=== PATIENT | female | born 2000 | race Caucasian/White ===

== ENCOUNTER 2019-11-19 09:49 | Outpatient (CLI) | payer OTHER, MEDICAID, SELFPAY ==
--- NOTE | 2019-11-19 10:07 | US_ITS ---
WS: [id number] ULTRASOUND TRANSABDOMINAL HISTORY: ANATOMY : 1 PARA: 0 COMPARISON: None available. FINDINGS: Cervical length measured. None; closed. Placenta grade 0, anterior cardiac tones 138 BPM. Cephalic presentation. Anterior placenta. Cervical length not measured. All 4 chambers of the heart well identified. The skull was normal including the cerebellum. The ventricles are normal The extremities were normal. The abdomen showed normal stomach All 3 vessels were recorded insertion are noted. Femoral length 3.07 cm 19 weeks 4 days gestation. The lips and nose appear to be normal. The spine appear to be symmetrical with no anomalous changes. Biparietal diameter measures 4.6 cm, equals 20w0d. Head circumference measures 18.3 cm, equals 20w5d. Abdomen circumference measures 14.7 cm, equals 20w0d. Femur length measures 3.1 cm, equals 19w4d. Estimated gestational age 20w1d An estimated delivery 04/06/2020. Estimated weight 317 g. US/US OB >= 14 weeks fetus [id number] IMPRESSION: 1. Single live intrauterine uterines . Estimated gestational age 20w 1d and estimated delivery 04/06/2020. 2. development appears to be normal with no definite anomaly seen.1
== END 2019-11-19 09:50 | disposition home or self-care (01) ==
LOC: RAD 09:54
PROVIDERS: Family Provider Family Medicine; PCP Family Medicine; Visit Provider Family Medicine
DX: Z34.82 Encounter for supervision of other normal pregnancy, second trimester (principal)
CPT/HCPCS: 76805

== ENCOUNTER 2019-12-14 01:16 | Emergency (ER) | payer MEDICAID, SELFPAY ==
[2019-12-14 01:31] VITALS: BP 131/94; PULSE 95; RESP 18; TEMP 36.4; O2SAT 98; BMI 35.4
--- NOTE | 2019-12-14 01:37 | ED_ITS ---
HPI - General Adult General: Stated complaint: lower back pain/vomiting Time Seen by Provider: 12/14/19 01:20 History of Present Illness: HPI narrative: Patient is 19-year-old female who is 23 weeks who woke up about 2330 last night with vomiting had not been sick throughout the day has had no problems throughout the . Has been vomiting since 2330 denies fever chills. Denies any food causes. As normal. Is complained about some back pain on the side denies flank tenderness denies any hematuria denies contractions 2 para 1 MD complaint: Nausea and vomiting Onset (ago): hour(s) (2 hours ago) Severity: mild Associated symptoms: Reports nausea and vomiting; Deny chest pain, cough, dyspnea, fevers/chills, headache(s), rash or short of breath Review of Systems Const: Denies: fever, chills or body aches Eyes: Denies: change in vision or blurry vision ENMT: Denies: throat pain or nasal congestion Card: Denies: chest pain or shortness of breath on exertion Resp: Denies: shortness of breath, productive cough or non-productive cough GI: Reports: nausea and vomiting; Denies: abdominal pain or diarrhea Musc: Denies: extremity pain Skin/Breast: Denies: rash Neuro: Denies: headache Psych: Denies: anxiety or depression Ayad/Lymph: Denies: easy bruising Physical Exam Const: COMMON NORMALS: no apparent distress, average body habitus and oriented x3 HENMT: COMMON NORMALS: normocephalic HEAD & SCALP: normal to inspection and normocephalic FACE & SINUS: normal facial exam Eye: COMMON NORMALS: conjunctivae normal GENERAL EYE: normal appearance of both eyes CONJUNCTIVA: Yes conjunctivae normal Neck/C-Spine: COMMON NORMALS: no JVD Chest: COMMONS NORMALS: inspection of chest normal Resp: COMMON NORMALS: normal respiratory effort and clear to auscultation bilaterally AUSCULTATION: clear to auscultation bilaterally Cardio: COMMON NORMALS: no JVD, regular rate and regular rhythm RATE: regular rate RHYTHM: regular rhythm GI: COMMON NORMALS: normal to inspection, nondistended, normoactive bowel sounds Extremity: COMMON NORMALS: normal to inspection and full ROM Neuro: COMMON NORMALS: oriented x3 Coding Level of Care Code ED Publications Distribution Clerk for Anthony Her
[2019-12-14 01:48] LABS: Basophils % 0.2 %; Eosinophils # 0.1 10^3/uL (0.0-0.8); Eosinophils % 0.7 %; Hematocrit 32.8 % (37.0-47.0); Hemoglobin 10.9 g/dL (11.5-15.3); Lymphocytes # 2.1 10^3/uL (1.5-6.5); Mean Corpuscular HGB Conc 33.2 g/dL (30.0-36.0); Mean Corpuscular Hemoglobin 28.8 pg (28.0-34.0); Mean Corpuscular Volume 86.5 fL (81-99); Mean Platelet Volume 10.2 fL (7.4-10.4); Monocytes # 0.7 10^3/uL (0.2-0.9); Monocytes % 5.6 %; Neutrophils # 9.1 10^3/uL (1.8-8.0); Neutrophils % 75.3 %; Nucleated Red Blood Cells % 0 %; Platelet Count 316 10^3/cmm (130-400); Red Blood Count 3.79 10^6/uL (4.1-5.3); Red Cell Distribution Width 14.4 % (12.1-15.1); White Blood Count 12.1 10^3/uL (4.5-13.0)
[2019-12-14] MEDS: sodium chloride 0.9% 1,000 ML 999 ML IV (02:02)
[2019-12-14] MEDS: ondansetron 2 mg/ML SDV 2 mL 4 MG IVP (02:02)
[2019-12-14 02:13] LABS: Alanine Aminotransferase 18 U/L (0-33); Albumin Level 3.2 g/dL (3.5-5.2); Alkaline Phosphatase 153 IU/L (35-105); Anion Gap 14.4 (5-19); Aspartate Amino Transferase 31 U/L (0-32); Blood Urea Nitrogen 5 mg/dL (6-20); Calcium 9.1 mg/dL (8.5-10.5); Carbon Dioxide 26 mmol/L (22-29); Chloride 102 mmol/L (98-107); Globulin 4.4 g/dL (1.3-4.6); Glomerular Filtration Rate 203.5 mL/min (90-130); Glucose 130 mg/dL (65-115); Lipase 43 U/L (13-60); Osmolality Calculated 285 mOsm/kg (285-295); Potassium 3.4 mmol/L (3.5-5.1); Sodium 139 mmol/L (136-145); Total Bilirubin 0.3 mg/dL (0.15-1.2); Total Protein 7.6 g/dL (6.6-8.7)
[2019-12-14 02:15] LABS: Add Urine Microscopic? NO
[2019-12-14 02:21] LABS: Bilirubin Urine 1+ (NEGATIVE); Blood Urine Neg (Negative); Glucose Urine UA Norm (Normal); Ketones Urine Negative (Negative); Leukocyte Esterase Urine Negative (Negative); Nitrate Urine Negative (Negative); Protein Urine Neg (Negative); Specific Gravity, Urine 1.025 (1.005-1.030); Urine Appearance Clear (CLEAR); Urine Color Yellow (Yellow); Urobilinogen Urine 4 mg/dL (Negative); pH Urine 5 (5-7)
[2019-12-14 03:23] VITALS: BP 139/73; PULSE 84; RESP 18; O2SAT 95
== END 2019-12-14 03:25 | disposition home or self-care (01) ==
PROVIDERS: Emergency Provider Nurse Practitioner Family; Family Provider Family Medicine; PCP Family Medicine
DX: O26.892 Other specified pregnancy related conditions, second trimester (principal); M54.5 Low back pain; O21.2 Late vomiting of pregnancy; Z3A.23 23 weeks gestation of pregnancy
CPT/HCPCS: 12345; 36415; 80053; 81003; 83690; 85025; 96360; 96361; 96374; 96375; 99283; A9270; J2405; J7030

== ENCOUNTER 2020-03-20 15:40 | Outpatient (CLI) | payer MEDICAID, SELFPAY ==
[2020-03-20] VITALS (18 sets, daily range): BP systolic 0–130; BP diastolic 0–79; PULSE 91–109; RESP 18; TEMP 36.9; BMI 37.2
[2020-03-20] MEDS: acetaminophen 500 mg Tablet 1000 MG PO (17:04)
[2020-03-20] MEDS: lactated ringers 1,000 ML 999 ML IV (17:06)
[2020-03-20 17:45] LABS: Basophils % 0.3 %; Eosinophils # 0.1 10^3/uL (0.0-0.8); Eosinophils % 0.9 %; Hematocrit 30.2 % (37.0-47.0); Hemoglobin 9.3 g/dL (11.5-15.3); Lymphocytes # 1.7 10^3/uL (1.5-6.5); Lymphocytes % 15.4 %; Mean Corpuscular HGB Conc 30.8 g/dL (30.0-36.0); Mean Corpuscular Hemoglobin 25.1 pg (28.0-34.0); Mean Corpuscular Volume 81.6 fL (81-99); Mean Platelet Volume 10.5 fL (7.4-10.4); Monocytes % 9.4 %; Neutrophils # 7.8 10^3/uL (1.8-8.0); Neutrophils % 70.2 %; Nucleated Red Blood Cells % 0 %; Platelet Count 255 10^3/cmm (130-400); Red Cell Distribution Width 16.2 % (12.1-15.1); White Blood Count 11.1 10^3/uL (4.5-13.0)
[2020-03-20 17:54] LABS: Bilirubin Urine Neg (NEGATIVE); Blood Urine Neg (Negative); Glucose Urine UA Norm (Normal); Ketones Urine Negative (Negative); Nitrate Urine Negative (Negative); Protein Urine Neg (Negative); Urine Appearance Clear (CLEAR); Urine Color Yellow (Yellow); pH Urine 7 (5-7)
[2020-03-20 17:55] LABS: Leukocyte Esterase Urine Negative (Negative); Urobilinogen Urine 1 mg/dL (Negative)
[2020-03-20 17:56] LABS: Add Urine Culture? No; Bacteria Urine TRACE; Mucus Urine 1+; WBC Urine 0-4 /hpf (0-5)
[2020-03-20 18:03] LABS: Alanine Aminotransferase 11 U/L (0-33); Albumin Level 3.8 g/dL (3.5-5.2); Alkaline Phosphatase 229 IU/L (35-105); Anion Gap 18.5 (5-19); Aspartate Amino Transferase 18 U/L (0-32); Blood Urea Nitrogen 5 mg/dL (6-20); Calcium 9.5 mg/dL (8.5-10.5); Carbon Dioxide 22 mmol/L (22-29); Chloride 100 mmol/L (98-107); Globulin 3.4 g/dL (1.3-4.6); Glomerular Filtration Rate 203.5 mL/min (90-130); Glucose 83 mg/dL (65-115); Osmolality Calculated 279 mOsm/kg (285-295); Potassium 3.5 mmol/L (3.5-5.1); Sodium 137 mmol/L (136-145); Total Bilirubin 0.3 mg/dL (0.15-1.2); Total Protein 7.2 g/dL (6.6-8.7); Uric Acid 3.4 mg/dL (2.4-5.7)
[2020-03-20 18:04] LABS: Urine Creatinine 75 mg/dL (28-217)
[2020-03-20 18:07] LABS: UPRO/UCREAT Ratio 0.28 mg/mg CR; Urine Protein Random 21 mg/dL
== END 2020-03-20 18:49 | disposition home or self-care (01) ==
LOC: OPOB 15:51 → OBGYN 18:29
PROVIDERS: PCP Family Medicine; Visit Provider Family Medicine
DX: O26.899 Other specified pregnancy related conditions, unspecified trimester (principal); Z3A.00 Weeks of gestation of pregnancy not specified; R51 Headache
CPT/HCPCS: 36415; 59025; 80053; 81001; 82570; 84156; 84550; 85025; 99211

== ENCOUNTER 2020-03-21 18:11 | Outpatient (CLI) | payer MEDICAID, SELFPAY ==
[2020-03-21 19:13] LABS: Total Volume, Urine 2600 mL
[2020-03-21 20:32] LABS: Total Protein 24 Hour Urine 304.2 mg/24HR (0-150); Urine Total Protein 24 Hour 11.7 mg/dL (0-150)
== END 2020-03-21 18:12 | disposition home or self-care (01) ==
PROVIDERS: PCP Family Medicine; Visit Provider Family Medicine
DX: I10 Essential (primary) hypertension (principal)
CPT/HCPCS: 84156

== ENCOUNTER 2020-03-24 22:40 | Outpatient (CLI) | payer MEDICAID, SELFPAY ==
[2020-03-24 22:59] VITALS: BP 128/64; PULSE 96
[2020-03-24 23:15] VITALS: BP 125/72; PULSE 98; RESP 18; TEMP 37
[2020-03-24 23:46] VITALS: BMI 37.7
== END 2020-03-24 23:43 | disposition home or self-care (01) ==
LOC: OPOB 22:51 → OBGYN 22:51
PROVIDERS: PCP Family Medicine; Visit Provider Family Medicine
DX: O36.8190 Decreased fetal movements, unspecified trimester, not applicable or unspecified (principal); Z3A.00 Weeks of gestation of pregnancy not specified; O13.9 Gestational [pregnancy-induced] hypertension without significant proteinuria, unspecified trimester
CPT/HCPCS: 59025; 99211

== ENCOUNTER 2020-03-27 10:24 | Outpatient (CLI) | payer MEDICAID, SELFPAY ==
[2020-03-27 10:37] VITALS: BP 124/65; PULSE 118; BMI 37.3
[2020-03-27 10:42] VITALS: RESP 16; TEMP 36.7
--- NOTE | 2020-03-27 10:42 | US_ITS ---
WS: [id number] ULTRASOUND OB LIMITED TECHNIQUE: Limited ultrasound examination of the fetus. CLINICAL INFORMATION: Preeclampsia COMPARISON: None. FINDINGS: Single interuterine gestation. presentation is vertex Placental location is anterior. Placenta grade: 2 heart rate 133 BPM. Normal TITI 17.1 cm Biophysical profile 8 out of 8. breathin movement: 2 tone: 2 Amniotic fluid: 2 IMPRESSION 1. Normal biophysical profile 8 out of 8 2. TITI 17.1 cm
[2020-03-27 11:13] VITALS: BP 130/72; PULSE 98
== END 2020-03-27 12:05 | disposition home or self-care (01) ==
LOC: OPOB 10:25 → OBGYN 03-28 08:13
PROVIDERS: PCP Family Medicine; Visit Provider Family Medicine
DX: O26.899 Other specified pregnancy related conditions, unspecified trimester (principal); Z3A.00 Weeks of gestation of pregnancy not specified
CPT/HCPCS: 59025; 76815; 76819

== ENCOUNTER 2020-03-28 22:40 | Inpatient (IN) | payer MEDICAID, SELFPAY ==
[2020-03-28] VITALS (12 sets, daily range): BP systolic 0–161; BP diastolic 0–80; PULSE 88–116; RESP 16; TEMP 37.1; BMI 37.2
[2020-03-28 22:43] LABS: Basophils % 0.2 %; Eosinophils # 0.1 10^3/uL (0.0-0.8); Eosinophils % 1.2 %; Hematocrit 29.4 % (37.0-47.0); Hemoglobin 9.3 g/dL (11.5-15.3); Lymphocytes % 21.9 %; Mean Corpuscular HGB Conc 31.6 g/dL (30.0-36.0); Mean Corpuscular Hemoglobin 25.7 pg (28.0-34.0); Mean Corpuscular Volume 81.2 fL (81-99); Mean Platelet Volume 10.5 fL (7.4-10.4); Monocytes % 11.6 %; Neutrophils # 5.6 10^3/uL (1.8-8.0); Neutrophils % 62.8 %; Nucleated Red Blood Cells % 0 %; Platelet Count 238 10^3/cmm (130-400); Red Blood Count 3.62 10^6/uL (4.1-5.3); Red Cell Distribution Width 18.3 % (12.1-15.1); White Blood Count 8.9 10^3/uL (4.5-13.0)
[2020-03-28 22:59] LABS: Alanine Aminotransferase 14 U/L (0-33); Albumin Level 3.7 g/dL (3.5-5.2); Alkaline Phosphatase 224 IU/L (35-105); Anion Gap 17.6 (5-19); Aspartate Amino Transferase 21 U/L (0-32); Blood Urea Nitrogen 5 mg/dL (6-20); Calcium 9.9 mg/dL (8.5-10.5); Carbon Dioxide 23 mmol/L (22-29); Chloride 101 mmol/L (98-107); Globulin 3.6 g/dL (1.3-4.6); Glomerular Filtration Rate 203.5 mL/min (90-130); Glucose 93 mg/dL (65-115); Osmolality Calculated 281 mOsm/kg (285-295); Potassium 3.6 mmol/L (3.5-5.1); Sodium 138 mmol/L (136-145); Total Bilirubin 0.2 mg/dL (0.15-1.2); Total Protein 7.3 g/dL (6.6-8.7); Uric Acid 3.4 mg/dL (2.4-5.7)
[2020-03-28] MEDS: dextrose 5%-lactated ringers 1,000 ML 125 ML IV (23:44)
[2020-03-28] MEDS: oxytocin 30 UNIT/500 ML BAG IV (23:44)
[2020-03-29] VITALS (95 sets, daily range): BP systolic 0–151; BP diastolic 0–93; PULSE 72–120; RESP 14–18; TEMP 36.6–37; O2SAT 88–99
[2020-03-29] MEDS: alum-mag-hydroxide-sime 30 mL UDC PO (01:38)
[2020-03-29] MEDS: lactated ringers 1,000 ML 999 ML IV (05:32)
[2020-03-29] MEDS: ondansetron 2 mg/ML SDV 2 mL 4 MG IVP (05:46)
--- NOTE | 2020-03-29 06:25 | P.ANESUD_ITS ---
Pre-Anesthetic Update Pre-Anesthetic Assessment: Date of Surgery/Procedure: 03/29/20 Preop Tracey gnosis: Labor pains Proposed Procedure: epidural Any changes to Pre- Anesthetic Assessment?: No Changes from Pre-Anesthetic Assessment: none Labs Last 48hrs: Laboratory Results - last 48 hr 03/28/20 03/28/20 22:30 22:30 WBC 8.9 RBC 3.62 L Hgb 9.3 L Hct 29.4 L MCV 81.2 MCH 25.7 L MCHC 31.6 RDW 18.3 H Plt Count 238 MPV 10.5 H Neut % (Auto) 62.8 Lymph % (Auto) 21.9 [place] % (Auto) 11.6 Eos % (Auto) 1.2 Baso % (Auto) 0.2 Neut # (Auto) 5.6 Lymph # (Auto) 2.0 [place] # (Auto) 1.0 H Eos # (Auto) 0.1 Baso # (Auto) 0.0 Nucleated RBC % (a uto) 0 Nucleated RBCs # 0.0 Sodium 138 Potassium 3.6 Chloride 101 Carbon Dioxide 23 Anion Gap 17.6 BUN 5 L Creatinine 0.4 L GFR Calculation 203.5 H Glucose 93 Calculated Osmolal ity 281 L Uric Acid 3.4 Calcium 9.9 Total Bilirubin 0.2 AST 21 ALT 14 Alkaline Phosphata se 224 H Total Protein 7.3 Albumin 3.7 Globulin 3.6 Vitals: Temperature 98.0 F 03/29/20 04:09 Temperature Source Oral 03/29/20 04:09 Pulse Rate 97 03/29/20 06:17 Pulse Rhythm 03/28/20 23:00 Pulse Strength 3+ Normal 03/28/20 23:00 Respiratory Rate 16 03/29/20 04:09 Respiratory Effort Non-Labored 03/28/20 23:00 Respiratory Depth Normal 03/28/20 23:00 Respiratory Patter n 03/28/20 23:00 Blood Pressure 129/77 03/29/20 06:17 Blood Pressure Amber n 105 03/29/20 06:17 Oxygen Delivery Me thod 03/29/20 04:09 Exam: Pre-Anes Outpt Exam: alert, oriented x 3, clear to auscultation bilaterally and regular rate & rhythm Cardiac Studies: No Data to Display
--- NOTE | 2020-03-29 06:54 | ANES.PROC ---
Anesthesia Procedures Procedure/Date: 03/29/20 epidural Procedure Narrative: epidural complete, bolus given, epidural pump initiated with DIRECTOR OF STRATEGIC SALES education given, vitals taken during procedure using OBIX system and satisfactory throughout, patient admits to decrease pain, report of procedure to OB RN Epidural: Time Out Performed: Yes Consents Signed: Procedure Consent Consent: requested by attending/covering physician, from patient, risks and benefits reviewed and patient agrees to proceed Lumbar Level: L3-L4 Epidural position: sitting Epidural procedure: sterile prep of area, 1% lidocaine to numb the area (3 mL), 18 g needle, negative for paresthesia passed, neg for paresthesia, test dose given, 1.5% xylocaine 1:200k epi (5 mL), 0.2% Ropivacaine bolus ml (5 mL), placed PCEA, no systemic response, sterile dressing applied, L.U.D. no apparent complications and 0.2% Ropiavacaine @ mls/hr (13 mL/hr)
[2020-03-29] MEDS: magnesium sulfate premix 4 GM/100 ML PREMIX IV (07:01)
[2020-03-29] MEDS: dextrose 5%-lactated ringers 1,000 ML 125 ML IV (07:06)
--- NOTE | 2020-03-29 08:13 | P.HP_ITS ---
Providers/Chief Complaint Admitting Physician: Pedro Luis Arzola MD Primary Care Provider: Greg Ortiz DO Chief Complaint: hypertension History of Present Illness Sonali Castle is a 19 year old G2, P1 at 38.1 weeks gestation by 6-week ultrasound inconsistent with LMP. Her is complicated by preeclampsia now with severe features, family history of PE after delivery, brother with autism, history of chlamydia, anemia. The patient was seen in my clinic on 03/28/2020 and had been feeling well overall, however her blood pressure was in the low 140s systolic. We discussed the need for induction of labor since her 24-hour total urine protein was above 300. The patient was scheduled for induction of labor on 03/30/2020 and given instruction to return to OB triage sooner if she is started developing any severe symptoms. On the evening of 03/28/2020, the patient began to have a headache that would not go away and was seeing spots continuously. For this reason she was kept for induction of labor. The patient denies any chest pains, shortness of breath, nausea, vomiting, dysuria, leakage of fluid, vaginal bleeding. Medications/Allergies Home Medications Medication Instructions Recorded Confirmed Last Taken Type ferrous sulfate [Iron (ferrous 325 mg PO DAILY 03/20/20 03/20/20 03/27/20 History sulfate)] Allergies Allergy/AdvReac Type Severity Reaction Status Date / Time No Known Allergies Allergy Verified 03/20/20 17:59 PFSH Acute PFSH: Family History Mother Diabetes Female Reproductive History: Date of last menstrual period: 06/10/19 : 2 Vitals/I&O/Wt Last Vital Signs Temp 98.0 F 03/29/20 04:09 Pulse 97 03/29/20 08:05 Resp 16 03/29/20 04:09 BP 114/60 03/29/20 08:05 Pulse Ox 98 03/29/20 07:03 03/28/20 03/29/20 03/29/20 22:59 06:59 14:59 Intake Total 1742.450 / 1742.450 75 / 75 Balance 1742.450 / 1742.450 75 / 75 Weight last 48 hrs Weight 210 lb Physical Exam Narrative: EXAM NARRATIVE: General: Alert and oriented x3 Eyes: Pupils equal round and reactive to light and accommodation Mouth: Mucous membranes moist, pharynx non-erythematous Cardiac: Regular rate and rhythm without murmurs Lungs: Clear to auscultation bilaterally without wheezes, crackles or rhonchi Abdomen: Soft, non-tender, fundus consistent with gestational age Extremities: Trace edema in the bilateral lower extremities Urinary Catheter Management^: Forte: Cath Placed During This Visit: yes Reason for Continuing Indwelling Catheter: Accurate Measurement of Urinary Output in Critically Ill Patients Urinary Catheter Date of Insertion: 03/29/20 Urinary Catheter Time of Insertion: : Data : 03/28/20 22:30 03/28/20 22:30 A&P Additional A&P Information Sonali Castle is a 19 year old at 38.1 weeks gestation by 6-week ultrasound inconsistent with LMP. Her is complicated by preeclampsia now with severe features, family history of PE after delivery, brother with autism, history of chlamydia, anemia. heart tones are currently in the mid 130s with moderate variability and good accelerations. Contractions are every 2 to 3 minutes. The patient is on 20 units of IV Pitocin. The patient has an epidural and is relatively comfortable other than feeling pressure. The patient has been started on IV magnesium secondary to preeclampsia with severe features. She is currently on 2 g/h. The patient is GBS negative. We will watch for any signs of complications. Expectant vaginal delivery. All questions were answered. Attestations Medical Necessity Statement*: The patient will be here for greater than 2 midnights due to routine intrapartum and management of labor and delivery. Coding Level of Care Code Acute Commercial Baking Teacher for Anthony Her
--- NOTE | 2020-03-29 09:21 | ANES.PROC ---
Anesthesia Procedures Procedure/Date: 03/29/20 Other Information: Pt with pain since water broken. described as increased pressure. Lido 2% 5cc and Fent 100 mcg given with expressed relief
--- NOTE | 2020-03-29 10:06 | P.PCNOB_ITS ---
Delivery Note: Date of delivery: March 29, 2020 Pre-delivery diagnoses: 1. Intrauterine at 38.1 weeks gestation 2. Anemia 3. Preeclampsia with severe features Post-delivery diagnoses: 1. Intrauterine status post spontaneous vaginal delivery at 38.1 weeks gestation 2. Anemia 3. Preeclampsia with severe features 4. Delivery of healthy male weighing 7 pounds 11 ounces with Apgars of 9 and 9 Procedure: Spontaneous vaginal delivery Op report anesthesia: Epidural Estimated blood loss (mL): 100 Findings: 1. Delivery of healthy infant male weighing 7 pounds 11 ounces with Apgars of 9 and 9 2. Intact placenta with central umbilical cord insertion site Pre-Delivery Course: The patient presented to labor and delivery triage secondary to elevating blood pressures and seeing spots. The patient was having intermittent elevated blood pressures and had a total urine protein consistent with preeclampsia, so she was kept for induction of labor. The patient was started on IV Pitocin and contracted well through the night. The patient received a laboring epidural. AROM was performed at 8:05 AM on 03/29/2020. The patient made good change and was complete by 9:25 AM on 03/29/2020. Delivery: The patient began pushing at 9:38 AM on 03/29/2020. The patient pushed well and the infant descended and delivered in the OA position at 9:45 AM on 03/29/2020. A nuchal cord was present and reduced prior to delivery of the . The left shoulder was the anterior shoulder and delivered with ease. Rest of the infant delivered without complication. The infant's mouth and nose were bulb suctioned by myself. The was crying immediately after delivery. The was placed on the mother's chest where the nurses were waiting to care for him. The cord was clamped by myself after approximately 1 minute and cut by the infant's father. Cord blood was then obtained. Traction was placed on the umbilical cord and the placenta delivered without complication at 9:49 AM on 03/29/2020. The placenta was noted to be intact with a central umbilical cord insertion site. The uterus was massaged and IV Pitocin was bolused. The patient had very little bleeding. The cervix was inspected and no lacerations were noted. The vaginal wall was inspected and a few mild abrasions were noted, without any lacerations needing suturing. Currently both the mother and are doing well. Estimated blood loss was 100 mL. Coding Level of Care Code Acute Drum Operator for Anthony Her
--- NOTE | 2020-03-29 12:43 | PC.NURSE ---
1215 PT MOVED UP TO 206, ORIENTATED TO ROOM, CALL LIGHT SYSTEM, REFUSING SCDS AT THIS TIME. WENT OVER PP PACK AND BED RAILS PADDED.
[2020-03-29 14:56] LABS: Magnesium Level (OB Only) 4.5 mg/dL (5.0-7.5)
[2020-03-29] MEDS: magnesium sulfate premix 20 GM/500 ML BAG IV (16:11)
[2020-03-29] MEDS: HYDROcodone-acetaminophen 5-325 mg Tablet PO (16:12)
[2020-03-29] MEDS: dextrose 5%-lactated ringers 1,000 ML 70 ML IV (21:31)
[2020-03-29 22:45] LABS: Magnesium Level (OB Only) 5.3 mg/dL (5.0-7.5)
[2020-03-29 23:28] LABS: Hematocrit 27.8 % (37.0-47.0); Hemoglobin 8.7 g/dL (11.5-15.3); Mean Corpuscular HGB Conc 31.3 g/dL (30.0-36.0); Mean Corpuscular Hemoglobin 26.1 pg (28.0-34.0); Mean Corpuscular Volume 83.5 fL (81-99); Mean Platelet Volume 11.1 fL (7.4-10.4); Platelet Count 241 10^3/cmm (130-400); Red Blood Count 3.33 10^6/uL (4.1-5.3); Red Cell Distribution Width 18.5 % (12.1-15.1); White Blood Count 11.2 10^3/uL (4.5-13.0)
[2020-03-30] VITALS (12 sets, daily range): BP systolic 112–140; BP diastolic 77–91; PULSE 76–89; RESP 16–18; TEMP 36.4–36.8; O2SAT 95–97
[2020-03-30] MEDS: magnesium sulfate premix 20 GM/500 ML BAG IV (03:00)
[2020-03-30 04:08] LABS: Magnesium Level (OB Only) 5.4 mg/dL (5.0-7.5)
[2020-03-30] MEDS: HYDROcodone-acetaminophen 5-325 mg Tablet PO (06:44)
--- NOTE | 2020-03-30 08:37 | PM.PN ---
Subjective Subjective: Interval history: The patient is feeling well overall today. She does have some side effects to the IV magnesium, however feels well otherwise. The patient's bleeding is decreasing well. She has been able to ambulate. The patient's urine output has been very good. Her blood pressures have been under good control. Vitals/I&O/Wt Last Vital Signs Temp 97.9 F 03/29/20 22:17 Pulse 81 03/30/20 04:40 Resp 16 03/29/20 22:17 BP 122/81 03/30/20 04:40 Pulse Ox 96 03/29/20 20:33 03/29/20 03/30/20 03/30/20 22:59 06:59 14:59 Intake Total 1001.167 / 1076.167 500 / 1576.167 Output Total 1505 / 2955 1565 / 4520 Balance -503.833 / -1878.833 -1065 / -2943.833 Weight last 48 hrs Weight 210 lb Physical Exam Narrative: EXAM NARRATIVE: General: Alert and oriented x3 Cardiac: Regular rate and rhythm without murmurs Lungs: Clear to auscultation bilaterally without wheezes, crackles or rhonchi Abdomen: Soft, fundus is firm and above the umbilicus by 1 cm. Extremities: Trace edema in the bilateral lower extremities Urinary Catheter Management^: Forte: Cath Placed During This Visit: yes Reason for Continuing Indwelling Catheter: Accurate Measurement of Urinary Output in Critically Ill Patients Urinary Catheter Date of Insertion: 03/29/20 Urinary Catheter Time of Insertion: : Data : 03/29/20 22:54 03/28/20 22:30 A&P Additional A&P Information Sonali Castle is a 19 year old G2 now P2 status post spontaneous vaginal delivery at 38.1 weeks gestation by 6-week ultrasound inconsistent with LMP. Her was complicated by preeclampsia now with severe features, family history of PE after delivery, brother with autism, history of chlamydia, anemia. The patient is doing well . She is currently improving well and we will discontinue IV magnesium at 24 hours after delivery. Plan for discharge home tomorrow if everything continues to go well. Routine precautions discussed. Attestations Medical Necessity Statement*: The patient will be here for greater than 2 midnights due to routine intrapartum and management of labor and delivery with preeclampsia. Coding Level of Care Code Acute Stone Polisher Hand for Arielag Taina
[2020-03-30 09:24] LABS: Magnesium Level (OB Only) 5.3 mg/dL (5.0-7.5)
[2020-03-30] MEDS: prenatal vitamin Capsule 1 CAP PO (09:33)
[2020-03-30] MEDS: docusate sodium 100 mg Capsule PO ×2 (09:33→17:54)
[2020-03-30] MEDS: ferrous sulfate EC 325 mg Tablet PO ×2 (12:37→17:54)
[2020-03-30] MEDS: benzocaine-menthol 78 gm Canister 1 SPRAY TOPICAL (20:15)
[2020-03-31 06:00] VITALS: BP 146/85; PULSE 74; RESP 18; TEMP 36.8; O2SAT 97
[2020-03-31] MEDS: ferrous sulfate EC 325 mg Tablet PO (08:21)
[2020-03-31] MEDS: docusate sodium 100 mg Capsule PO (08:21)
[2020-03-31] MEDS: prenatal vitamin Capsule 1 CAP PO (08:21)
--- NOTE | 2020-03-31 09:59 | PM.DCS ---
Discharge Providers Date of Admission: 03/28/20 22:40 Date of Discharge: March 31, 2020 Attending Provider at Admission: Pedro Luis Arzola MD Attending Provider at Discharge: Pedro Luis Arzola MD Primary Care Provider: Greg Ortiz DO Diagnoses at Discharge Discharge Diagnosis (1) Intrauterine : Status: Acute (2) Preeclampsia: Status: Acute Reason for Visit Reason for Visit: hypertension Hospital Course Hospital Course: The patient presented to labor and delivery triage secondary to elevating blood pressures and seeing spots. The patient was having intermittent elevated blood pressures and had a total urine protein consistent with preeclampsia, so she was kept for induction of labor. The patient was started on IV Pitocin and contracted well through the night. The patient received a laboring epidural. AROM was performed at 8:05 AM on 03/29/2020. The patient made good change and was complete by 9:25 AM on 03/29/2020. Delivery: The patient began pushing at 9:38 AM on 03/29/2020. The patient pushed well and the infant descended and delivered in the OA position at 9:45 AM on 03/29/2020. A nuchal cord was present and reduced prior to delivery of the . The left shoulder was the anterior shoulder and delivered with ease. Rest of the delivered without complication. The infant's mouth and nose were bulb suctioned by myself. The infant was crying immediately after delivery. The was placed on the mother's chest where the nurses were waiting to care for him. The cord was clamped by myself after approximately 1 minute and cut by the 's father. Cord blood was then obtained. Traction was placed on the umbilical cord and the placenta delivered without complication at 9:49 AM on 03/29/2020. The placenta was noted to be intact with a central umbilical cord insertion site. The uterus was massaged and IV Pitocin was bolused. The patient had very little bleeding. The cervix was inspected and no lacerations were noted. The vaginal wall was inspected and a few mild abrasions were noted, without any lacerations needing suturing. Currently both the mother and are doing well. Estimated blood loss was 100 mL. : The patient was placed on IV magnesium during the labor process and this was continued for 24 hours after delivery. The patient was then watched for 24 more hours off of IV magnesium and her blood pressure was only above 140 occasionally. The patient denies any headaches, flashes of light, dizziness, nausea, vomiting. Her pain is well controlled. Her bleeding is decreasing well. Routine discharge instructions were given as well as to keep overall activity level very low for the next week to decrease risk for complications. She is to follow-up with me in the next few days in clinic for recheck. All questions were answered. The patient is in agreement with discharge home at this time. Physical Exam Narrative: EXAM NARRATIVE: General: Alert and oriented x3 Cardiac: Regular rate and rhythm without murmurs Lungs: Clear to auscultation bilaterally without wheezes, crackles or rhonchi Abdomen: Soft, fundus is firm and 2 cm below the umbilicus. Extremities: Trace edema in the bilateral lower extremities Urinary Catheter Management^: Forte: Cath Placed During This Visit: yes, but has since been removed by the nurse Reason for Continuing Indwelling Catheter: Decision to DC Catheter Urinary Catheter Date of Insertion: 03/29/20 Urinary Catheter Time of Insertion: 07: Date Urinary Catheter Removed: 03/30/20 Time Urinary Catheter Discontinued: 10:05 Discharge Data Vitals: Last Vital Signs Temp 98.3 F 03/31/20 06:00 Pulse 74 03/31/20 06:00 Resp 18 03/31/20 06:00 BP 146/85 03/31/20 06:00 Pulse Ox 97 03/31/20 06:00 Discharge Plan Discharge Patient Disposition: Home, Self-Care Condition: Good Prescriptions: New ibuprofen 800 mg Tablet 800 mg PO TID Qty: 60 RF: 0 -U 106.5-1 mg Capsule 1 cap PO DAILY Qty: 30 RF: 0 Changed ferrous sulfate [Iron (ferrous sulfate)] 325 mg (65 mg iron) Tablet 325 mg PO TID Qty: 60 RF: 0 Discharge Attestations Time Spent in Discharge Care*: less than 30 min Quality Metrics Clinical Quality Measures During this hospital stay, did patient experience: None Coding Level of Care Code Acute School Traffic Guard for Arielag Fwd Diagnoses Intrauterine Z34.90 Preeclampsia O14.90
[2020-03-31 10:08] VITALS: BP 141/94; PULSE 78; RESP 18; TEMP 36.9
== END 2020-03-31 10:45 | disposition home or self-care (01) | DRG 807 ==
LOC: OBGYN 03-29 07:50 → OPOB 03-29 07:50
PROVIDERS: Admitting Provider Family Medicine; PCP Family Medicine; Visit Provider Family Medicine
DX: O14.14 Severe pre-eclampsia complicating childbirth (principal); Z37.0 Single live birth; Z3A.38 38 weeks gestation of pregnancy; O69.1XX0 Labor and delivery complicated by cord around neck, with compression, not applicable or unspecified
CPT/HCPCS: 12345; 36415; 51702; 59025; 59409; 80053; 83735; 84550; 85025; 85027; 96374; 96375; 98960; 99211; J2405; J2795; J3010; J3475

== ENCOUNTER 2021-11-14 11:46 | Outpatient (CLI) | payer MEDICAID, SELFPAY ==
--- NOTE | 2021-11-14 12:03 | XR_ITS ---
WS: [id number] Chest 2 views, 11/14/2021 Clinical Data: POSITIVE PPD Comparison: PA and lateral chest, 11/11/2016. Findings: No nodules, masses or effusions are seen. The heart is normal. The pulmonary vascularity is not increased. No pneumonia or pneumothorax is seen. XR/XR chest 2V* [id number] Impression: Negative chest.
== END 2021-11-14 11:47 | disposition home or self-care (01) ==
LOC: RAD 11:54
PROVIDERS: PCP Family Medicine; Visit Provider Family Medicine
DX: R76.11 Nonspecific reaction to tuberculin skin test without active tuberculosis (principal)
CPT/HCPCS: 71046

== ENCOUNTER → 2022-05-21 12:28 | Outpatient (BNVA) | payer MEDICAID, SELFPAY | PROVIDERS: PCP Family Medicine; Visit Provider Family Medicine | DX: Z12.4 Encounter for screening for malignant neoplasm of cervix (principal) | CPT/HCPCS: 87624 ==

== ENCOUNTER 2022-07-25 14:42 | Emergency (ER) | payer MEDICAID, SELFPAY ==
[2022-07-25 15:45] VITALS: BP 123/85; PULSE 94; RESP 16; TEMP 36.3; O2SAT 97; BMI 35.4
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
[2022-07-25 17:56] VITALS: BP 130/80; PULSE 94; RESP 16; TEMP 36.3; O2SAT 97
[2022-07-25] MEDS: ketorolac 60 mg/2 mL INJ IM (17:56)
== END 2022-07-25 17:57 | disposition home or self-care (01) ==
PROVIDERS: Emergency Provider Nurse Practitioner Family; PCP Family Medicine
DX: Z04.1 Encounter for examination and observation following transport accident (principal); V89.2XXA Person injured in unspecified motor-vehicle accident, traffic, initial encounter
CPT/HCPCS: 81025; 96372; 99284; J1885

== ENCOUNTER → 2022-09-16 12:10 | Outpatient (BNVA) | payer MEDICAID, SELFPAY | PROVIDERS: PCP Family Medicine; Visit Provider Clinical Nurse Specialist Adult Health | DX: J02.9 Acute pharyngitis, unspecified (principal); J02.0 Streptococcal pharyngitis | CPT/HCPCS: 87880 ==

== ENCOUNTER → 2023-02-21 16:57 | Outpatient (BNVA) | payer MEDICAID, SELFPAY | PROVIDERS: PCP Family Medicine; Visit Provider Registered Nurse Neonatal Intensive Care | DX: R30.0 Dysuria (principal); N39.0 Urinary tract infection, site not specified | CPT/HCPCS: 81000; 87077; 87086; 87184 ==

== ENCOUNTER → 2023-04-15 09:28 | Outpatient (BNVA) | payer MEDICAID, SELFPAY | PROVIDERS: PCP Family Medicine; Visit Provider Family Medicine | DX: Z51.81 Encounter for therapeutic drug level monitoring (principal); R53.81 Other malaise; R53.83 Other fatigue | CPT/HCPCS: 80053; 84439; 84443; 85025 ==

== ENCOUNTER → 2023-07-14 11:31 | Outpatient (BNVA) | payer MEDICAID, SELFPAY | PROVIDERS: PCP Family Medicine; Visit Provider Nurse Practitioner Family | DX: J02.9 Acute pharyngitis, unspecified (principal) | CPT/HCPCS: 87880 ==

== ENCOUNTER 2023-09-20 01:25 | Emergency (ER) | payer MEDICAID, SELFPAY ==
[2023-09-20 01:30] VITALS: BP 140/103; PULSE 76; RESP 16; TEMP 36.8; O2SAT 97; BMI 35.0
--- NOTE | 2023-09-20 01:43 | ED_ITS ---
HPI - Abdominal Pain 2 General: Chief Complaint: Abdominal Pain Stated Complaint: sharp pain right abd vomit Time Seen by Provider: 09/20/23 01:43 History of Present Illness: 22-year-old female presenting with right upper quadrant pain. She notes that the past couple of days she has had pain on and off. She has had constant pain since 4 PM yesterday. She has vomited once at home. No fever. She says that she has had increased belching as well. No history of abdominal surgery. She does not believe she is . Associated Symptoms: Reports nausea and vomiting; Denies chills, diarrhea, fever(s) and hematochezia Review of Systems 2 Const: Denies: fever(s), chills or body aches Eyes: Denies: change in vision Card: Denies: chest pain or palpitations Resp: Denies: dyspnea, productive cough, non-productive cough or wheezing GI: Reports: abdominal pain, nausea and vomiting; Denies: diarrhea or hematochezia : Denies: difficulty voiding Skin/Breast: Denies: rash Neuro: Denies: headache(s), weakness in extremities, dizziness or confusion PFSH ED 2 PFSH: Medical History Allergic rhinitis due to allergen Major depression Surgical History History of placement of ear tubes Hx of wisdom tooth extraction Family History Mother Diabetes Social History Smoking and tobacco/nicotine status: never used tobacco/nicotine Alcohol intake: current Alcohol intake frequency: holidays/special occasions only Substance/Drug Use: current Other substance/drug use details: Once a week Physical Exam 2 Const: COMMON NORMALS: no acute distress GENERAL APPEARANCE: cooperative; not frail appearing HENMT: COMMON NORMALS: normocephalic, atraumatic and Normal external nose present HEAD & SCALP: normocephalic and atraumatic FACE & SINUS: normal facial exam and face symmetric NOSE: Normal external nose present Eye: COMMON NORMALS: Equal, round and reactive pupils present and EOMs intact bilaterally PUPIL: Yes Equal, round and reactive pupils present Neck/C-Spine: GENERAL: Yes trachea midline Chest: CHEST: Yes Symmetrical chest wall rise Resp: COMMON NORMALS: normal respiratory effort, No retractions, No use of accessory muscles and clear to auscultation bilaterally AUSCULTATION: clear to auscultation bilaterally Cardio: COMMON NORMALS: regular rate and regular rhythm RATE: regular rate RHYTHM: regular rhythm GI: COMMON NORMALS: Normal to inspection, nondistended, normoactive bowel sounds present PALPATION: Yes Tenderness to palpation present (GI) Details: RUQ : BLADDER/KIDNEY EXAM: Yes CVA tenderness on the right Back/Pelvis: GENERAL BACK: Yes CVA tenderness Extremity: COMMON NORMALS: no pedal edema Neuro: KENZIE COMA SCALE: document GCS findings Baldwin coma scale eye opening: Spontaneous Baldwin coma scale verbal response: Orientated Baldwin coma scale motor response: Obey commands Kenzie coma scale total score: 15 S ENSORY EXAM: Yes extremities (intact) Psych: COMMON NORMALS: speech normal SPEECH: Yes normal speech Skin: COMMON NORMALS: no rashes or lesions noted GENERAL SKIN EXAM: no rashes or lesions noted Course 2 Vital Signs: Vital signs: Vital Signs Temperature 98.3 F 09/20/23 01:30 Pulse Rate 67 09/20/23 03:53 Respiratory Rate 16 09/20/23 03:53 Blood Pressure 140/90 09/20/23 03:53 Pulse Oximetry 98 09/20/23 03:53 Oxygen Delivery Me thod Room Air 09/20/23 02:51 MDM - Abdominal Pain Medical Decision Making Vitals are stable. She is afebrile. Laboratory workup is not remarkable. CT scan shows an enlarged gallbladder with no calcified stones. No ductal dilatation. No evidence of cholecystitis. She is likely experiencing biliary colic. She tells me she has had several of these episodes, but this 1 was the worst and did not go away on its own. Outpatient follow-up. Medication for pain and nausea if needed. Clear liquids for 24 hours and advance. Return for worsening symptoms. Lab Data 09/20/23 01:42 09/20/23 01:42 Labs/Radiology: Radiology Impressions Abdomen/Pelvis CT 09/20/23 02:42 IMPRESSION: 1. The gallbladder is large with no calcified stone. 2. No small bowel obstruction, abscess or free air. The colon is rather fecal filled. 3. Left ovarian dermoid. Laboratory Results WBC 10.59 10^3/uL (3.29-11.43) 09/20/23 01:42 RBC 4.46 10^6/uL (3.85-5.65) 09/20/23 01:42 Hgb 12.60 g/dL (11.27-16.99) 09/20/23 01:42 Hct 37.4 % (36-47) 09/20/23 01:42 MCV 83.9 fl (85-98) L 09/20/23 01:42 MCH 28.3 pg (27-33) 09/20/23 01:42 MCHC 33.7 g/dL (30-55) 09/20/23 01:42 RDW 13.3 % (12.1-15.1) 09/20/23 01:42 Plt Count 352 10^3/cmm (157-399) 09/20/23 01:42 MPV 10.0 fL (7.4-10.4) 09/20/23 01:42 Neut % (Auto) 60.2 % 09/20/23 01:42 Lymph % (Auto) 30.7 % 09/20/23 01:42 Giles % (Auto) 6.9 % 09/20/23 01:42 Eos % (Auto) 1.4 % 09/20/23 01:42 Baso % (Auto) 0.4 % 09/20/23 01:42 Neut # (Auto) 6.38 10^3/uL (1.8-7.7) 09/20/23 01:42 Lymph # (Auto) 3.3 10^3/uL (0.8-4.8) 09/20/23 01:42 Giles # (Auto) 0.7 10^3/uL (0.2-0.9) 09/20/23 01:42 Eos # (Auto) 0.2 10^3/uL (0.0-0.8) 09/20/23 01:42 Baso # (Auto) 0.0 10^3/uL (0.0-0.1) 09/20/23 01:42 Nucleated RBC % (auto) 0 % 09/20/23 01:42 Nucleated RBCs # 0.0 /100WBC 09/20/23 01:42 Sodium 138 mmol/L (136-145) 09/20/23 01:42 Potassium 4.4 mmol/L (3.5-5.1) 09/20/23 01:42 Chloride 104 mmol/L (98-107) 09/20/23 01:42 Carbon Dioxide 26 mmol/L (22-29) 09/20/23 01:42 Anion Gap 12.0 (5-19) 09/20/23 01:42 BUN 10 mg/dL (6-20) 09/20/23 01:42 Creatinine 0.6 mg/dL (0.5-0.9) 09/20/23 01:42 GFR Calculation 123.9 mL/min (90-130) 09/20/23 01:42 Glucose 109 mg/dL (65-115) 09/20/23 01:42 Calculated Osmolality 286 mOsm/kg (285-295) 09/20/23 01:42 Calcium 9.4 mg/dL (8.5-10.5) 09/20/23 01:42 Total Bilirubin 0.2 mg/dL (0.15-1.2) 09/20/23 01:42 AST 13 U/L (0-32) 09/20/23 01:42 ALT 12 U/L (0-33) 09/20/23 01:42 Alkaline Phosphatase 91 U/L (35-105) 09/20/23 01:42 C-Reactive Protein 5.0 mg/L (0.0-4.9) H 09/20/23 01:42 Total Protein 7.7 g/dL (6.6-8.7) 09/20/23 01:42 Albumin 4.4 g/dL (3.5-5.2) 09/20/23 01:42 Globulin 3.3 g/dL (1.3-4.6) 09/20/23 01:42 Lipase 50 U/L (13-60) 09/20/23 01:42 HCG, Qual Negative (Negative) 09/20/23 01:42 Urine Color Yellow (Yellow) 09/20/23 01:44 Urine Appearance Clear (CLEAR) 09/20/23 01:44 Urine pH 5 (5-7) 09/20/23 01:44 Ur Specific Cutler 1.025 (1.005-1.030) 09/20/23 01:44 Urine Protein Neg (Negative) 09/20/23 01:44 Urine Glucose (UA) Norm (Normal) 09/20/23 01:44 Urine Ketones Negative (Negative) 09/20/23 01:44 Urine Blood Neg (Negative) 09/20/23 01:44 Urine Nitrate Negative (Negative) 09/20/23 01:44 Urine Bilirubin Neg (Negative) 09/20/23 01:44 Urine Urobilinogen Norm mg/dL (Negative) 09/20/23 01:44 Ur Leukocyte Esterase Negative (Negative) 09/20/23 01:44 All radiology interpretation(s) finalized by discharge Discharge Plan Discharge Patient Disposition: Home Clinical Impression: Biliary colic Condition: Stable Prescriptions: New hydrocodone-acetaminophen 5-325 mg tablet 1 tab PO Q8H PRN (Reason: pain) Qty: 7 0RF ondansetron 4 mg tablet,disintegrating 4 mg PO Q6H PRN (Reason: nausea and vomiting) Qty: 14 0RF No Action rifampin 300 mg capsule 300 mg PO BID fluoxetine 20 mg capsule 20 mg PO DAILY Qty: 30 6RF azithromycin 250 mg tablet See Rx Instructions PO .COMPLEX Qty: 6 0RF Rx Instructions: For 250 mg dose pack: take 500 mg today (day 1), then 250 mg for 4 days (days 2-5) PO levothyroxine 50 mcg tablet 50 mcg PO DAILY Qty: 30 2RF Discharge Orders: Discharge ED (Routine); Ordered 09/20/23 Ordered By: Tree Newton Referrals: Pedro Luis Arzola MD [Primary Care Provider] - Patient Instructions: Biliary Colic (ED), Abdominal Pain (ED), Opioid Safety, Pain Management Activity Restrictions/Additional Instructions: Clear liquids for the next 24 hours. Slowly advance your diet as tolerated following that. Follow-up with your doctor next week. Return for vomiting liquids or medications, worsening pain despite treatment, fever greater than 100, other concerning symptoms. Coding Level of Care Code ED Dealer Support Technician for Anthony Her
[2023-09-20 01:51] LABS: Basophils % 0.4 %; Eosinophils # 0.2 10^3/uL (0.0-0.8); Eosinophils % 1.4 %; Hematocrit 37.4 % (36-47); Lymphocytes # 3.3 10^3/uL (0.8-4.8); Lymphocytes % 30.7 %; Mean Corpuscular HGB Conc 33.7 g/dL (30-55); Mean Corpuscular Hemoglobin 28.3 pg (27-33); Mean Corpuscular Volume 83.9 fl (85-98); Monocytes # 0.7 10^3/uL (0.2-0.9); Monocytes % 6.9 %; Neutrophils # 6.38 10^3/uL (1.8-7.7); Neutrophils % 60.2 %; Nucleated Red Blood Cells % 0 %; Platelet Count 352 10^3/cmm (157-399); Red Blood Count 4.46 10^6/uL (3.85-5.65); Red Cell Distribution Width 13.3 % (12.1-15.1); White Blood Count 10.59 10^3/uL (3.29-11.43)
[2023-09-20 01:51] LABS: Add Urine Microscopic? NO
[2023-09-20 01:59] LABS: Charge for UA Resulting for Rev; Urine Appearance Clear (CLEAR); Urine Color Yellow (Yellow)
[2023-09-20 02:00] LABS: Bilirubin Urine Neg (Negative); Blood Urine Neg (Negative); Glucose Urine UA Norm (Normal); Ketones Urine Negative (Negative); Leukocyte Esterase Urine Negative (Negative); Nitrate Urine Negative (Negative); Protein Urine Neg (Negative); Specific Gravity, Urine 1.025 (1.005-1.030); Urobilinogen Urine Norm (Negative); pH Urine 5 (5-7)
[2023-09-20 02:12] LABS: HCG, Serum Qual Negative (Negative)
[2023-09-20 02:14] LABS: Albumin Level 4.4 g/dL (3.5-5.2); Alkaline Phosphatase 91 U/L (35-105); Chloride 104 mmol/L (98-107); Potassium 4.4 mmol/L (3.5-5.1); Sodium 138 mmol/L (136-145)
[2023-09-20 02:24] LABS: Alanine Aminotransferase 12 U/L (0-33); Aspartate Amino Transferase 13 U/L (0-32); Blood Urea Nitrogen 10 mg/dL (6-20); Calcium 9.4 mg/dL (8.5-10.5); Carbon Dioxide 26 mmol/L (22-29); Globulin 3.3 g/dL (1.3-4.6); Glomerular Filtration Rate 123.9 mL/min (90-130); Glucose 109 mg/dL (65-115); Lipase 50 U/L (13-60); Osmolality Calculated 286 mOsm/kg (285-295); Total Bilirubin 0.2 mg/dL (0.15-1.2); Total Protein 7.7 g/dL (6.6-8.7)
--- NOTE | 2023-09-20 02:42 | CTR_ITS ---
PROCEDURE INFORMATION: Exam: CT Abdomen And Pelvis With Contrast Exam date and time: 09/20/2023 3:01 AM Age: 22 years old Clinical indication: Nausea and vomiting; Abdominal pain; Localized; Right upper quadrant (ruq); Patient HX: Ruq pain with n/v TECHNIQUE: Imaging protocol: Computed tomography of the abdomen and pelvis with contrast. Radiation optimization: All CT scans at this facility use at least one of these dose optimization techniques: automated exposure control; mA and/or kV adjustment per patient size (includes targeted exams where dose is matched to clinical indication); or iterative reconstruction. Contrast material: OMNI 350; Contrast volume: 100 ml; Contrast route: INTRAVENOUS (IV); REPORTING DATA: Count of CT and Cardiac NM exams in prior 12 months: This patient has received 0 known CTs and 0 known cardiac nuclear medicine studies in the 12 months prior to the current study. COMPARISON: US OB lmt w/ BPP wo NST 03/27/2020 11:25 AM RADIATION DOSE METRICS: Total DLP (mGy-cm): 878.79 FINDINGS: Lungs: The visualized lung bases are clear. Liver: Unremarkable. No enhancing mass. Gallbladder and bile ducts: No calcified gallstones or biliary dilation identified. Large at 4 cm trans. Pancreas: Unremarkable with no suspicious mass. No ductal dilation. Spleen: The spleen is not enlarged. No suspicious enhancing mass is noted. Adrenal glands: Normal. No mass. Kidneys and ureters: No solid renal mass or hydronephrosis. Stomach and bowel: No small bowel obstruction or free air. No overt mucosal thickening. The colon is rather fecal filled. Appendix: Normal appendix. Intraperitoneal space: Unremarkable. No free air. No suspicious fluid collection. Vasculature: No AAA or acute vascular lesion identified. Lymph nodes: No enlarged lymph nodes. Urinary bladder: Unremarkable as visualized. Reproductive: Left ovarian dermoid measures up to about 3.3 cm. It contains internal fat and calcification. The right ovary is mildly heterogenous as well. Cannot exclude very small right ovarian dermoid. Bones/joints: No acute fracture. Soft tissues: Tiny fat umbilical hernia. CT/CT abdomen pelvis w con* [id number] IMPRESSION: 1. The gallbladder is large with no calcified stone. 2. No small bowel obstruction, abscess or free air. The colon is rather fecal filled. 3. Left ovarian dermoid.
[2023-09-20] MEDS: ondansetron 2 mg/ML SDV 2 mL 4 MG IVP ×2 (02:48→03:48)
[2023-09-20 02:49] VITALS: RESP 16; O2SAT 99
[2023-09-20] MEDS: morphine 4 mg/mL SDV 1 mL IVP ×2 (02:49→03:49)
[2023-09-20 02:51] VITALS: BP 130/90; PULSE 64; RESP 14; O2SAT 98
[2023-09-20] MEDS: iohexol 350 mg/mL 500 mL Btl (per mL) IV (03:03)
[2023-09-20] MEDS: ketorolac 30 mg/mL INJ IVP (03:48)
[2023-09-20] MEDS: lidocaine 2% viscous 15 ML, aluminum-mag hydrox-simethicon 30 ML, sucralfate oral liq 1 GM PO (03:48)
[2023-09-20 03:49] VITALS: RESP 16
[2023-09-20 03:53] VITALS: BP 140/90; PULSE 67; RESP 16; O2SAT 98
[2023-09-20 05:02] VITALS: PULSE 80; RESP 18; O2SAT 99
== END 2023-09-20 05:29 | disposition home or self-care (01) ==
PROVIDERS: Emergency Provider Emergency Medicine; PCP Family Medicine
DX: K80.50 Calculus of bile duct without cholangitis or cholecystitis without obstruction (principal); D27.1 Benign neoplasm of left ovary
CPT/HCPCS: 36415; 74177; 80053; 81003; 83690; 84703; 85025; 86140; 96374; 96375; 96376; 99285; J1885; J2270; J2405; Q9967

== ENCOUNTER 2023-10-03 19:33 | Emergency (ER) | payer MEDICAID, SELFPAY ==
[2023-10-03 19:36] VITALS: BP 124/84; PULSE 82; RESP 16; TEMP 36.6; O2SAT 97; BMI 35.4
--- NOTE | 2023-10-03 20:59 | ED_ITS ---
HPI - Abdominal Pain General: Chief Complaint: Abdominal Pain Stated Complaint: abdomen pain, n/v Time Seen by Provider: 10/03/23 20:08 History of Present Illness: Sonali is 22-year-old female that presents to the emergency department with right upper quadrant abdominal pain. Patient was evaluated by Dr. Newton on 09/20/2023 Vitals are stable. She is afebrile. Laboratory workup is not remarkable. CT scan shows an enlarged gallbladder with no calcified stones. No ductal dilatation. No evidence of cholecystitis. She is likely experiencing biliary colic. She tells me she has had several of these episodes, but this 1 was the worst and did not go away on its own. Outpatient follow-up. Medication for pain and nausea if needed. Clear liquids for 24 hours and advance. Return for worsening symptoms. Patient has followed up with Dr. Arzola since that time and a HIDA scan is ordered to evaluate for gallbladder disease. Patient states this evening she had pizza for dinner very quickly developed this right upper quadrant abdominal pain. By the time I was evaluating her in a room, pain had subsided. Patient denies any complaints at this moment Related Data: Date of Last Menstrual Period: 09/21/23 Review of Systems General: Reports: 10 or more systems reviewed and unremarkable except in HPI and below PFSH ED PFSH: Medical History Allergic rhinitis due to allergen Major depression Surgical History History of placement of ear tubes Hx of wisdom tooth extraction Family History Mother Diabetes Social History Smoking and tobacco/nicotine status: never used tobacco/nicotine Alcohol intake: current Alcohol intake frequency: holidays/special occasions only Substance/Drug Use: current Other substance/drug use details: Once a week Female Reproductive History: Date of last menstrual period: 09/21/23 Physical Exam Const: COMMON NORMALS: no acute distress GENERAL APPEARANCE: cooperative; not frail appearing HENMT: COMMON NORMALS: normocephalic, atraumatic and Normal external nose present HEAD & SCALP: normocephalic and atraumatic FACE & SINUS: normal facial exam and face symmetric NOSE: Normal external nose present Eye: COMMON NORMALS: Equal, round and reactive pupils present and EOMs intact bilaterally PUPIL: Yes Equal, round and reactive pupils present Neck/C-Spine: GENERAL: Yes trachea midline Chest: CHEST: Yes Symmetrical chest wall rise Resp: COMMON NORMALS: normal respiratory effort, No retractions, No use of accessory muscles and clear to auscultation bilaterally AUSCULTATION: clear to auscultation bilaterally Cardio: COMMON NORMALS: regular rate and regular rhythm RATE: regular rate RHYTHM: regular rhythm GI: COMMON NORMALS: Normal to inspection, nondistended, normoactive bowel sounds present PALPATION: Yes Tenderness to palpation present (GI) Details: RUQ : BLADDER/KIDNEY EXAM: Yes CVA tenderness on the right Back/Pelvis: GENERAL BACK: Yes CVA tenderness Extremity: COMMON NORMALS: no pedal edema Neuro: KENZIE COMA SCALE: document GCS findings Kenzie coma scale eye opening: Spontaneous Bend coma scale verbal response: Orientated Kenzie coma scale motor response: Obey commands Kenzie coma scale total score: 15 SENSORY EXAM: Yes extremities (intact) Psych: COMMON NORMALS: speech normal SPEECH: Yes normal speech Skin: COMMON NORMALS: no rashes or lesions noted GENERAL SKIN EXAM: no rashes or lesions noted Course Vital Signs: Vital signs: Vital Signs Temperature 97.9 F 10/03/23 19:36 Pulse Rate 82 10/03/23 19:36 Respiratory Rate 16 10/03/23 19:36 Blood Pressure 124/84 10/03/23 19:36 Pulse Oximetry 97 10/03/23 19:36 Oxygen Delivery Me thod Room Air 10/03/23 19:36 MDM - Abdominal Pain Medical Decision Making Patient was evaluated in the emergency department this evening for right upper quadrant abdominal pain that has resolved. Patient is declining further evaluation since she has follow-up scheduled for HIDA scan. She denies need for fluids pain meds or something for nausea. Patient has been instructed to continue to monitor her symptoms. She is to return to the emergency department for new concerning or worsening symptoms. Otherwise, patient should proceed with the HIDA scan that is scheduled and follow-up with Dr. Arzola as planned. All questions answered No radiology studies performed this visit Discharge Plan Discharge Patient Disposition: Home Clinical Impression: Abdominal pain Condition: Stable Prescriptions: No Action rifampin 300 mg capsule 300 mg PO BID fluoxetine 20 mg capsule 20 mg PO DAILY Qty: 30 6RF azithromycin 250 mg tablet See Rx Instructions PO .COMPLEX Qty: 6 0RF Rx Instructions: For 250 mg dose pack: take 500 mg today (day 1), then 250 mg for 4 days (days 2-5) PO levothyroxine 50 mcg tablet 50 mcg PO DAILY Qty: 30 2RF hydrocodone-acetaminophen 5-325 mg tablet 1 tab PO Q8H PRN (Reason: pain) Qty: 7 0RF ondansetron 4 mg tablet,disintegrating 4 mg PO Q6H PRN (Reason: nausea and vomiting) Qty: 14 0RF Discharge Orders: Discharge ED (Routine); Ordered 10/03/23 Ordered By: Rahel Killian Referrals: Pedro Luis Arzola MD [Primary Care Provider] - Discharge Diet: Advance as tolerated Discharge Activity: Resume usual activity Patient Instructions: Abdominal Pain (ED), Opioid Safety, Pain Management Activity Restrictions/Additional Instructions: Please follow through with your HIDA scan. Follow-up with Dr. Arzola as previously discussed Return to the emergency department for new concerning or worsening symptoms Coding Level of Care Code ED [employer] for Anthony Her
== END 2023-10-03 21:11 | disposition home or self-care (01) ==
PROVIDERS: Emergency Provider Nurse Practitioner; PCP Family Medicine
DX: R10.11 Right upper quadrant pain (principal)
CPT/HCPCS: 99281

== ENCOUNTER 2023-10-06 01:50 | Observation (INO) | payer MEDICAID, SELFPAY ==
[2023-10-06] VITALS (23 sets, daily range): BP systolic 96–145; BP diastolic 65–100; PULSE 63–95; RESP 14–22; TEMP 36.2–36.9; O2SAT 93–100; BMI 35.4
[2023-10-06 02:17] LABS: Basophils % 0.2 %; Eosinophils # 0.1 10^3/uL (0.0-0.8); Eosinophils % 0.7 %; Hematocrit 37.8 % (36-47); Mean Corpuscular HGB Conc 33.9 g/dL (30-55); Mean Corpuscular Hemoglobin 27.9 pg (27-33); Mean Corpuscular Volume 82.4 fl (85-98); Mean Platelet Volume 10.2 fL (7.4-10.4); Monocytes # 0.8 10^3/uL (0.2-0.9); Neutrophils # 9.68 10^3/uL (1.8-7.7); Neutrophils % 70.7 %; Nucleated Red Blood Cells % 0 %; Platelet Count 339 10^3/cmm (157-399); Red Blood Count 4.59 10^6/uL (3.85-5.65); Red Cell Distribution Width 13.2 % (12.1-15.1)
[2023-10-06] MEDS: sodium chloride 0.9% 1,000 ML 999 ML IV (02:21)
[2023-10-06] MEDS: ketorolac 30 mg/mL INJ IVP (02:23)
[2023-10-06 02:24] LABS: HCG, Serum Qual Negative (Negative)
[2023-10-06] MEDS: ondansetron 2 mg/ML SDV 2 mL 4 MG IVP ×2 (02:24→13:36)
[2023-10-06] MEDS: morphine 4 mg/mL SDV 1 mL IVP ×2 (02:26→04:12)
[2023-10-06 02:30] LABS: Alanine Aminotransferase 67 U/L (0-33); Albumin Level 4.6 g/dL (3.5-5.2); Alkaline Phosphatase 109 U/L (35-105); Anion Gap 15.1 (5-19); Aspartate Amino Transferase 146 U/L (0-32); Blood Urea Nitrogen 12 mg/dL (6-20); Calcium 9.7 mg/dL (8.5-10.5); Carbon Dioxide 27 mmol/L (22-29); Chloride 101 mmol/L (98-107); Globulin 3.8 g/dL (1.3-4.6); Glomerular Filtration Rate 123.9 mL/min (90-130); Glucose 165 mg/dL (65-115); Lipase 65 U/L (13-60); Osmolality Calculated 291 mOsm/kg (285-295); Potassium 4.1 mmol/L (3.5-5.1); Sodium 139 mmol/L (136-145); Total Bilirubin 0.5 mg/dL (0.15-1.2); Total Protein 8.4 g/dL (6.6-8.7)
--- NOTE | 2023-10-06 02:46 | USR_ITS ---
PROCEDURE INFORMATION: Exam: US Abdomen, Limited; Right Upper Quadrant Exam date and time: 10/06/2023 3:35 AM Age: 22 years old Clinical indication: Abdominal pain; Epigastric; Additional info: Ruq epigastric pain TECHNIQUE: Imaging protocol: Real time ultrasound of the abdomen with image documentation. Limited exam focused on the right upper quadrant. COMPARISON: CT abdomen pelvis w con* [id number] 09/20/2023 3:01 AM FINDINGS: Liver: The liver is stable size compared to 09/20/2023 CT exam. No focal abnormality detected within imaged portions of the liver. Hepatopetal flow is present in the portal vein. Gallbladder: Multiple stones are present within a nondistended gallbladder. No obvious gallbladder wall edema. Biliary ducts: Common bile duct measures 4 mm which is within normal limits. Pancreas: Pancreas incompletely imaged due to overlying bowel gas; that portion seen is unremarkable. Right kidney: Images of the right kidney are unremarkable. Aorta: Abdominal aorta has normal caliber. Inferior vena cava: IVC is normal caliber. US/US gall bladder [id number] IMPRESSION: Cholelithiasis; no obvious acute abnormality.
--- NOTE | 2023-10-06 02:53 | ED_ITS ---
HPI - Abdominal Pain 2 General: Chief Complaint: Abdominal Pain Stated Complaint: ABD Pain Time Seen by Provider: 10/06/23 01:54 History of Present Illness: 22-year-old female with a history of trish iary colic. She presents with right upper quadrant and epigastric pain radiating in a bandlike fashion around her belly and into her back. She is has some pain between her shoulder blades as well. No vomiting. She has been nauseated. She is experienced diarrhea with pale stools this evening. Pain has been constant for over 2 hours. Associated Symptoms: Reports nausea and vomiting; Denies chills and fever(s) Review of Systems 2 Const: Denies: fever(s) or chills ENMT: Denies: throat pain Card: Denies: chest pain Resp: Denies: dyspnea, productive cough or non-productive cough GI: Reports: abdominal pain, nausea and vomiting PFSH ED 2 PFSH: Medical History Allergic rhinitis due to allergen Major depression Surgical History History of placement of ear tubes Hx of wisdom tooth extraction Family History Mother Diabetes Social History Smoking and tobacco/nicotine status: never used tobacco/nicotine Alcohol intake: current Alcohol intake frequency: holidays/special occasions only Substance/Drug Use: current Other substance/drug use details: Once a week Physical Exam 2 Const: COMMON NORMALS: no acute distress GENERAL APPEARANCE: cooperative and ill appearing (mildly); not frail appearing HENMT: COMMON NORMALS: normocephalic, atraumatic and Normal external nose present HEAD & SCALP: normocephalic and atraumatic FACE & SINUS: normal facial exam and face symmetric NOSE: Normal external nose present Eye: COMMON NORMALS: Equal, round and reactive pupils present and EOMs intact bilaterally PUPIL: Yes Equal, round and reactive pupils present Neck/C-Spine: GENERAL: Yes trachea midline Chest: CHEST: Yes Symmetrical chest wall rise Resp: COMMON NORMALS: normal respiratory effort, No retractions, No use of accessory muscles and clear to auscultation bilaterally AUSCULTATION: clear to auscultation bilaterally Cardio: COMMON NORMALS: regular rate and regular rhythm RATE: regular rate RHYTHM: regular rhythm GI: COMMON NORMALS: Normal to inspection, nondistended, normoactive bowel sounds present and Soft to palpation PALPATION: Yes Soft to palpation and Yes Tenderness to palpation present (GI) Details: RUQ Extremity: COMMON NORMALS: no pedal edema Neuro: KENZIE COMA SCALE: document GCS findings Kenzie coma scale eye opening: Spontaneous Kenzie coma scale verbal response: Orientated Kenzie coma scale motor response: Obey commands Kenzie coma scale total score: 15 S ENSORY EXAM: Yes extremities (intact) Psych: COMMON NORMALS: speech normal SPEECH: Yes normal speech Skin: COMMON NORMALS: no rashes or lesions noted GENERAL SKIN EXAM: no rashes or lesions noted Course 2 Vital Signs: Vital signs: Vital Signs Temperature 98.4 F 10/06/23 01:54 Pulse Rate 66 10/06/23 04:14 Respiratory Rate 16 10/06/23 04:14 Blood Pressure 96/73 10/06/23 04:14 Pulse Oximetry 98 10/06/23 04:14 Oxygen Delivery Me thod Room Air 10/06/23 04:14 MDM - Abdominal Pain Medical Decision Making 22-year-old female with abdominal pain nausea pale stools and right upper quadrant pain. White blood cell count is 13.7. She has slight elevation in her liver enzymes, with a normal bilirubin of 0.5. Lipase is 65. Gallbladder ultrasound reveals gallstones. Mildly thickened gallbladder wall. No pericholecystic fluid. No ductal dilatation. Spoke with surgery. This is her third visit with biliary colic to the ER in a couple of weeks. Recommendations are admission, antibiotics, pain control, he will see her later this morning Lab Data 10/06/23 02:02 10/06/23 02:02 Labs/Radiology: Radiology Impressions Gallbladder Ultrasound 10/06/23 02:46 IMPRESSION: Cholelithiasis; no obvious acute abnormality. Laboratory Results WBC 13.70 10^3/uL (3.29-11.43) H 10/06/23 02:02 RBC 4.59 10^6/uL (3.85-5.65) 10/06/23 02:02 Hgb 12.80 g/dL (11.27-16.99) 10/06/23 02:02 Hct 37.8 % (36-47) 10/06/23 02:02 MCV 82.4 fl (85-98) L 10/06/23 02:02 MCH 27.9 pg (27-33) 10/06/23 02:02 MCHC 33.9 g/dL (30-55) 10/06/23 02:02 RDW 13.2 % (12.1-15.1) 10/06/23 02:02 Plt Count 339 10^3/cmm (157-399) 10/06/23 02:02 MPV 10.2 fL (7.4-10.4) 10/06/23 02:02 Neut % (Auto) 70.7 % 10/06/23 02:02 Lymph % (Auto) 22.0 % 10/06/23 02:02 [place] % (Auto) 6.0 % 10/06/23 02:02 Eos % (Auto) 0.7 % 10/06/23 02:02 Baso % (Auto) 0.2 % 10/06/23 02:02 Neut # (Auto) 9.68 10^3/uL (1.8-7.7) H 10/06/23 02:02 Lymph # (Auto) 3.0 10^3/uL (0.8-4.8) 10/06/23 02:02 [place] # (Auto) 0.8 10^3/uL (0.2-0.9) 10/06/23 02:02 Eos # (Auto) 0.1 10^3/uL (0.0-0.8) 10/06/23 02:02 Baso # (Auto) 0.0 10^3/uL (0.0-0.1) 10/06/23 02:02 Nucleated RBC % (auto) 0 % 10/06/23 02:02 Nucleated RBCs # 0.0 /100WBC 10/06/23 02:02 Sodium 139 mmol/L (136-145) 10/06/23 02:02 Potassium 4.1 mmol/L (3.5-5.1) 10/06/23 02:02 Chloride 101 mmol/L (98-107) 10/06/23 02:02 Carbon Dioxide 27 mmol/L (22-29) 10/06/23 02:02 Anion Gap 15.1 (5-19) 10/06/23 02:02 BUN 12 mg/dL (6-20) 10/06/23 02:02 Creatinine 0.6 mg/dL (0.5-0.9) 10/06/23 02:02 GFR Calculation 123.9 mL/min (90-130) 10/06/23 02:02 Glucose 165 mg/dL (65-115) H 10/06/23 02:02 Calculated Osmolality 291 mOsm/kg (285-295) 10/06/23 02:02 Calcium 9.7 mg/dL (8.5-10.5) 10/06/23 02:02 Total Bilirubin 0.5 mg/dL (0.15-1.2) 10/06/23 02:02 AST 146 U/L (0-32) H 10/06/23 02:02 ALT 67 U/L (0-33) H 10/06/23 02:02 Alkaline Phosphatase 109 U/L (35-105) H 10/06/23 02:02 C-Reactive Protein 5.0 mg/L (0.0-4.9) H 10/06/23 02:02 Total Protein 8.4 g/dL (6.6-8.7) 10/06/23 02:02 Albumin 4.6 g/dL (3.5-5.2) 10/06/23 02:02 Globulin 3.8 g/dL (1.3-4.6) 10/06/23 02:02 Lipase 65 U/L (13-60) H 10/06/23 02:02 HCG, Qual Negative (Negative) 10/06/23 02:02 XR interpretation done by ED provider, pending radiology final review Discharge Plan Discharge Patient Disposition: Admitted As Inpatient Clinical Impression: Cholecystitis Coding Level of Care Code ED Instrument And Electrical Technician for Anthony Her
[2023-10-06] MEDS: ciprofloxacin 500 mg Tablet PO (04:13)
[2023-10-06] MEDS: metroNIDAZOLE 500 MG Tablet PO (04:14)
--- NOTE | 2023-10-06 07:27 | PC.PHAR ---
pt states she hasnt been taking her medications-pt states she hasnt taken her fluoxetine 20mg daily in 2 months ext shows last filled 07/10/23 30d/s pt states still has some at home just in case-pt also states she hasnt been taking her rifampin 300mg 600mg po daily ext shows last filled 07/10/23 30d/s pt states she has a drs appt with a different dr to see if she is suppose to keep taking or switch to something else pt states still has some at home-pt states she is no longer taking levothyroxine 50mcg pt states took for one month and that was it ext shows last filled 07/10/23 30d/s-notes are made in the pharmacy comments
[2023-10-06] MEDS: piperacillin-tazobactam 3.375 GM in sodium chloride 0.9% (plus) 50 ML IV ×3 (08:28→21:35)
[2023-10-06] MEDS: lactated ringers 1,000 ML 125 ML IV (08:29)
--- NOTE | 2023-10-06 11:02 | P.HP_ITS ---
Providers/Chief Complaint 2 Admitting Physician: Doc Humphrey DO Primary Care Provider: Pedro Luis Arzola MD Chief Complaint: ABD Pain History of Present Illness Sonali Castle is a 22 year old female is a hospital with a several day history of constant abdominal pain rating to her back. The pain was sharp and intermittent. Eating makes pain worse. Nothing makes it better. She does endorse occasional diarrhea along with nausea and vomiting after eating. She denies any hematemesis, hematochezia and/or melena. Gallbladder ultrasound shows cholelithiasis and her white blood cell count is 13,000. Denies any fever or chills Review of Systems 2 General: Reports: 10 or more systems reviewed and unremarkable except in HPI and below Medications/Allergies Home Medications Medication Instructions Recorded Confirmed Last Taken Type rifampin 300 mg capsule 600 mg PO DAILY PRN unknown 04/15/23 10/06/23 2 Months Ago History ~08/06/23 not taken for 2 anuja hydrocodone 5 mg-acetaminophen 325 1 tab PO Q8H PRN pain #7 tabs 09/20/23 10/06/23 Unknown Rx mg tablet ondansetron 4 mg disintegrating 4 mg PO Q6H PRN nausea and 09/20/23 10/06/23 Unknown Rx tablet vomiting #14 tabs fluoxetine 20 mg capsule 20 mg PO DAILY PRN unknown 10/06/23 10/06/23 2 Months Ago History ~08/06/23 not taken in 2 month Allergies Allergy/AdvReac Type Severity Reaction Status Date / Time No Known Allergies Allergy Verified 10/06/23 07:22 PFSH Acute 2 PFSH: Medical History Allergic rhinitis due to allergen Major depression Surgical History History of placement of ear tubes Hx of wisdom tooth extraction Family History Mother Diabetes Social History Smoking and tobacco/nicotine status: never used tobacco/nicotine Alcohol intake: current Alcohol intake frequency: holidays/special occasions only Substance/Drug Use: current Other substance/drug use details: Once a week Vitals/I&O/Wt Last Vital Signs Temp 98.4 F 10/06/23 01:54 Pulse 66 10/06/23 04:14 Resp 16 10/06/23 04:14 BP 103/65 10/06/23 07:00 Pulse Ox 94 10/06/23 07:00 O2 Del Method Room Air 10/06/23 07:00 10/05/23 10/06/23 10/06/23 22:59 06:59 14:59 Intake Total 1000 / 1000 Balance 1000 / 1000 Weight last 48 hrs Weight 200 lb Physical Exam 2 Narrative: General : Patient is well developed , no acute distress, oriented x3 Head : Normal cephalic, a-traumatic. Ears : Pinnae and external canal are normal. Hearing is normal. Eyes : PERRLA, Sclera and injection are normal. No conjunctival discharge. Nose : Mucous membranes are without erythema. Throat : buccal mucosa is normal, gums are without significant recession or hypertrophy. Lungs : Equal chest rise bilaterally, no use of accessory muscles, trachea is midline. Cor : Rate and rhythm are normal. Abdomen : Soft, ND, tender palpation right upper quadrant, negative Dickinson's, no g/r/m Extremities : No edema, no cyanosis or clubbing, dorsalis pedis pulses are present bilaterally, non-tender to palpation of calves. Upper extremities are normal bilaterally. Back : non-tender to palpation, no CVA tenderness. Neuro : CN II - XII intact, Upper and lower extremities have equal and full strength Data 10/06/23 02:02 10/06/23 02:02 A&P Assessment and plan (1) Acute calculous cholecystitis: Plan Laparoscopic cholecystectomy The risks and benefits of the procedure, including but not limited to, bleeding, infection, scar, numbness, pain, damage to surrounding structures, damage to common bile duct requiring additional surgery, conversion to an open procedure, were explained to the patient. He is understanding of the risks and wishes to proceed. Attestations 2 Medical Necessity Statement*: Patient requires at least 1 night in the hospital for covering thoughts, cholecystectomy Coding Level of Care Code 38462 Diagnoses Acute calculous cholecystitis K80.00
--- NOTE | 2023-10-06 11:33 | ANES.PREANE2 ---
Pre-Anesthetic Assessment Height/Weight: Height 1.6 m Weight 90.718 kg Temp Pulse Resp BP Pulse Ox O2 Del Method 97.2 F L 73 18 113/71 98 Room Air 10/06/23 11:13 10/06/23 11:13 10/06/23 11:13 10/06/23 11:13 10/06/23 11:13 10/06/23 11:13 Operation Date: 10/06/23 11:35 Proposed Procedures p Laparoscopic Cholecystectomy(Not Applicable) - Doc Humphrey, DO Was Beta Rick taken within 24 hours: N/A Was Clonidine taken within 24 hours: N/A Last intake: Intake Last Liquid Date 10/06/23 Last Liquid Time 04:00 Last Solid Date 10/05/23 Last Solid Time 19:00 Exam alert and oriented x 3 Airway Submandibular: within normal limits Cervical ROM: within normal limits Mallampati: Class II History/ROS No significant history except as noted and No significant complaints Pulmonary Latent TB Metabolic Morbid Obesity Neuropsych Depression Anesthetic Plan ASA status: 2 Anesthesia: General Risk of > 500 ml blood loss (7ml/kg in children): No Medications/Allergies Home Medications Medication Instructions Recorded Confirmed Last Taken Type rifampin 300 mg capsule 600 mg PO DAILY PRN unknown 04/15/23 10/06/23 2 Months Ago History ~08/06/23 not taken for 2 anuja hydrocodone 5 mg-acetaminophen 325 1 tab PO Q8H PRN pain #7 tabs 09/20/23 10/06/23 Unknown Rx mg tablet ondansetron 4 mg disintegrating 4 mg PO Q6H PRN nausea and 09/20/23 10/06/23 Unknown Rx tablet vomiting #14 tabs fluoxetine 20 mg capsule 20 mg PO DAILY PRN unknown 10/06/23 10/06/23 2 Months Ago History ~08/06/23 not taken in 2 month Allergies Allergy/AdvReac Type Severity Reaction Status Date / Time No Known Allergies Allergy Verified 10/06/23 07:22 Current Medications Generic Name Dose Route Start Last Admin Trade Name Freq PRN Reason Stop Dose Admin Lactated Ringer's 1,000 mls @ 125 mls/hr 10/06/23 08:02 10/06/23 08:29 Lactated Ringers IV 125 mls/hr .Q8H DONNA Administration Piperacillin Sod/Tazobactam 50 mls @ 100 mls/hr 10/06/23 08:02 10/06/23 08:28 Sod 3.375 gm/ Sodium Chloride IV 100 mls/hr Q6H DONNA Administration Protocol [facility] Anesthesia Medical History Allergic rhinitis due to allergen Major depression Surgical History History of placement of ear tubes Hx of wisdom tooth extraction Family History Mother Diabetes Social History Smoking and tobacco/nicotine status: never used tobacco/nicotine Alcohol intake: current Alcohol intake frequency: holidays/special occasions only Substance/Drug Use: current Other substance/drug use details: Once a week Data Anesthesia 10/06/23 02:02 10/06/23 02:02 Short CBC 10/06/23 Range/Units 02:02 WBC 13.70 H (3.29-11.43) 10^3/uL Hgb 12.80 (11.27-16.99) g/dL Hct 37.8 (36-47) % MCV 82.4 L (85-98) fl Plt Count 339 (157-399) 10^3/cmm Neut % (Auto) 70.7 % Neut # (Auto) 9.68 H (1.8-7.7) 10^3/uL BMP 10/06/23 02:02 Sodium 139 Potassium 4.1 Chloride 101 Carbon Dioxide 27 BUN 12 Creatinine 0.6 Glucose 165 H Calcium 9.7 Liver Function 10/06/23 Range/Units 02:02 Total Bilirubin 0.5 (0.15-1.2) mg/dL AST 146 H (0-32) U/L ALT 67 H (0-33) U/L Alkaline Phosphatase 109 H (35-105) U/L Albumin 4.6 (3.5-5.2) g/dL Coags 10/06/23 02:02 C-Reactive Protein 5.0 H Cardiac Studies: No Data to Display
[2023-10-06] MEDS: sodium chloride 0.9% 1,000 ML 30 ML IV (11:34)
[2023-10-06] MEDS: lidocaine-epi 2% 20 mL INJ INJECTION (12:27)
[2023-10-06] MEDS: fentaNYL 50 mcg/mL INJ 2mL IVP (13:40)
[2023-10-06] MEDS: ondansetron 2 mg/ML SDV 2 mL 4 MG (13:58)
--- NOTE | 2023-10-06 14:22 | P.OP_ITS ---
Operative Report Date of procedure: October 06, 2023 Surgeon: Doc Humphrey DO Brief History: This very pleasant 22-year-old female came to the hospital with right upper quadrant Cesario pain. She is diagnosed with cholecystitis. Laparoscopic cholecystectomy is indicated. The risk benefits were explained and documented. Procedure: Preoperative diagnosis: Cholecystitis Postoperative diagnosis: Same Procedure performed: Laparoscopic cholecystectomy Surgeon: Dr. Doc Humphrey DO Estimated blood loss: 5 mL Specimens: Gallbladder to pathology Complications: None apparent Description of procedure: Patient was wheeled into the operative room and placed on the OR table in a supine position. Abdomen was inspected prepped and draped in usual sterile fashion. Time-out was performed and all present were in agreement. A 15 blade scalp was used to make a stab incision in the left upper quadrant and intra- abdominal insufflation was achieved using a Veress needle. After localizing the tissue incisions were made and a 5 millimeter trocar was placed into the umbilicus as well as 2 in the right upper quadrant. A 12 millimeter trocar was placed in the epigastrium. Gallbladder was grasped and elevated. The triangle of Calot was carefully dissected using blunt dissection and electrocautery until the triangle of Calot clearly identified. The cystic duct was clipped proximally and double clipped distally. The duct was then ligated proximally. The cystic artery was doubly clipped and ligated. The gallbladder was then removed from the liver bed using electrocautery. The gallbladder was removed from the abdomen using an Endo-Catch bag through the epigastric incision. The liver bed was inspected and no bleeding was seen. The abdomen was irrigated and suctioned. All ports removed. Skin was washed and dried. Incisions were closed with 4-0 Monocryl in a subcuticular interrupted fashion. Skin glue was applied. Patient tolerated the procedure well.
--- NOTE | 2023-10-06 16:27 | ANE.PACU2 ---
Inpatient post-anesthesia follow up: Airway intact: Yes Vital signs: Temperature 97.6 F Pulse Rate 95 Respiratory Rate 15 Blood Pressure 136/90 Pulse Oximetry 94 Oxygen Delivery Me thod Room Air Oxygen Flow Rate 8 Fraction of Inspir ed Oxygen Hydration adequate: Yes Nausea and vomiting: No Pain level: 3 Mental status: Baseline
[2023-10-06] MEDS: HYDROcodone-acetaminophen 7.5-325 mg Tablet 1 TAB PO ×2 (16:34→21:35)
[2023-10-07] VITALS: BP 116/92; PULSE 69; RESP 16; TEMP 36.9; O2SAT 96
[2023-10-07] MEDS: HYDROcodone-acetaminophen 7.5-325 mg Tablet 1 TAB PO ×3 (02:04→17:03)
[2023-10-07] MEDS: lactated ringers 1,000 ML 125 ML IV ×3 (02:04→17:04)
[2023-10-07] MEDS: piperacillin-tazobactam 3.375 GM in sodium chloride 0.9% (plus) 50 ML IV ×4 (03:45→22:53)
[2023-10-07 04:00] VITALS: BP 102/65; PULSE 72; RESP 16; TEMP 36.9; O2SAT 95
[2023-10-07 07:05] LABS: Basophils % 0.2 %; Hematocrit 34.6 % (36-47); Lymphocytes # 1.1 10^3/uL (0.8-4.8); Lymphocytes % 10.8 %; Mean Corpuscular HGB Conc 32.7 g/dL (30-55); Mean Corpuscular Volume 85.9 fl (85-98); Mean Platelet Volume 10.9 fL (7.4-10.4); Monocytes # 0.7 10^3/uL (0.2-0.9); Monocytes % 6.6 %; Neutrophils % 81.5 %; Nucleated Red Blood Cells % 0 %; Platelet Count 311 10^3/cmm (157-399); Red Blood Count 4.03 10^6/uL (3.85-5.65); Red Cell Distribution Width 13.2 % (12.1-15.1)
[2023-10-07 07:18] LABS: Albumin Level 3.8 g/dL (3.5-5.2); Alkaline Phosphatase 130 U/L (35-105); Anion Gap 13.9 (5-19); Aspartate Amino Transferase 583 U/L (0-32); Blood Urea Nitrogen 4 mg/dL (6-20); Calcium 8.7 mg/dL (8.5-10.5); Carbon Dioxide 24 mmol/L (22-29); Chloride 104 mmol/L (98-107); Globulin 3.1 g/dL (1.3-4.6); Glomerular Filtration Rate 151.6 mL/min (90-130); Glucose 116 mg/dL (65-115); Osmolality Calculated 284 mOsm/kg (285-295); Potassium 3.9 mmol/L (3.5-5.1); Sodium 138 mmol/L (136-145); Total Bilirubin 2.3 mg/dL (0.15-1.2); Total Protein 6.9 g/dL (6.6-8.7)
[2023-10-07 07:31] LABS: Alanine Aminotransferase 834 U/L (0-33)
[2023-10-07 08:00] VITALS: BP 105/69; PULSE 69; RESP 16; TEMP 36.7; O2SAT 97
--- NOTE | 2023-10-07 09:35 | PC.CHAP ---
Pastoral Care Encounter/Spiritual Assessment Type of Contact [] Declined cloud automation tester visit [] Patient/Family/Request visit [] Outpatient visit [] Follow-up visit [] Physician referral [] Code/Alert [x] Routine visit [] Staff referral [] Actively dying [] Patient sleeping [] Family support [] [] Out of room [] Palliative care [] [] Receiving care in room [] Pre-surgical visit [] Trauma [] Long length of stay [] ICU visit [] Other: Relational/Emotional Strength [x] Patient feels connected with others/family/visitors/staff [] Distress [] Loneliness/isolation [] Abandonment Spirituality of Patient [x] Person of Yuliya [] Attends Muslim of their Yuliya [x] Believes in Prayer [] Reads Bible or Mandaeism materials [] There are Spiritual issues to be addressed 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 Interventions [x] Prayer [x] Active listening [] Non-anxious presence [x] Spiritual/emotional support [] Crisis/trauma care [] Spiritual counseling [] Bereavement support [] Provided bereavement packet [] Provided Bible/devotional materials [] Provided toy/stuffed animal, coloring book to patient or family member [] Provided Communion [] Anointing/[place] [] Salvation [x] Completed spiritual assessment [] Other: Impact on Illness or Injury [] Angry [] Fearful [] Anxious [] Often cries [] Exhaustion [] Unable to work [] Unable to attend congregational [] Unable to walk/stand [] Unable to read [] Unable to drive [] Unable to eat/drink [] Unable to sleep [] Unable to be with family [] Patient intubated [] Other: Summary Time spent with patient 5 min
[2023-10-07 11:38] VITALS: BP 113/74; PULSE 81; RESP 17; TEMP 36.9; O2SAT 96
--- NOTE | 2023-10-07 15:48 | P.PN_ITS ---
Subjective 2 Subjective: Patient seen and examined. Pain controlled. Vitals/I&O/Wt Last Vital Signs Temp 98.5 F 10/07/23 11:38 Pulse 81 10/07/23 11:38 Resp 17 10/07/23 11:38 BP 113/74 10/07/23 11:38 Pulse Ox 96 10/07/23 11:38 O2 Del Method Room Air 10/07/23 11:38 O2 Flow Rate 8 10/06/23 13:09 10/07/23 10/07/23 10/07/23 06:59 14:59 22:59 Intake Total 50 / 1700 1258.75 / 1258.75 Balance 50 / 1698 1258.75 / 1258.75 Weight last 48 hrs Weight 200 lb Weight 200 lb Weight 200 lb Physical Exam 2 Narrative: General: No acute distress, awake alert and oriented x 3 Abdomen: Soft, nondistended, appropriately tender, no guarding rebound or masses Data 10/07/23 05:58 10/07/23 05:58 A&P Assessment and plan (1) Status post laparoscopic cholecystectomy: (2) Hyperbilirubinemia: Plan HIDA scan ordered, unfortunately cannot be performed until tomorrow morning N.p.o. after midnight Further recommendations pending results of HIDA scan A.m. labs Attestations 2 Medical Necessity Statement*: Patient requires at least 1 more night in the hospital after laparoscopic cholecystectomy in order to receive a HIDA scan in the morning Coding Level of Care Code Acute Code for Chg Fwd Diagnoses Status post laparoscopic cholecystectomy Z90.49 Hyperbilirubinemia E80.6
[2023-10-07 16:00] VITALS: BP 99/66; PULSE 72; RESP 17; TEMP 37; O2SAT 97
[2023-10-07 20:00] VITALS: BP 101/68; PULSE 77; RESP 17; TEMP 36.9; O2SAT 97
[2023-10-08] VITALS: BP 103/63; PULSE 69; RESP 16; TEMP 37; O2SAT 95
[2023-10-08] MEDS: lactated ringers 1,000 ML 125 ML IV (02:58)
[2023-10-08 04:00] VITALS: BP 113/74; PULSE 73; RESP 17; TEMP 37; O2SAT 91
[2023-10-08] MEDS: piperacillin-tazobactam 3.375 GM in sodium chloride 0.9% (plus) 50 ML IV ×2 (05:38→10:39)
[2023-10-08 05:49] LABS: Basophils % 0.4 %; Eosinophils # 0.1 10^3/uL (0.0-0.8); Eosinophils % 1.5 %; Hematocrit 33.8 % (36-47); Lymphocytes # 2.9 10^3/uL (0.8-4.8); Lymphocytes % 39.7 %; Mean Corpuscular HGB Conc 32.2 g/dL (30-55); Mean Corpuscular Hemoglobin 28.3 pg (27-33); Mean Corpuscular Volume 87.8 fl (85-98); Mean Platelet Volume 10.3 fL (7.4-10.4); Monocytes # 0.6 10^3/uL (0.2-0.9); Monocytes % 8.1 %; Neutrophils # 3.55 10^3/uL (1.8-7.7); Neutrophils % 49.1 %; Nucleated Red Blood Cells % 0 %; Platelet Count 266 10^3/cmm (157-399); Red Blood Count 3.85 10^6/uL (3.85-5.65); Red Cell Distribution Width 13.9 % (12.1-15.1); White Blood Count 7.25 10^3/uL (3.29-11.43)
[2023-10-08 06:16] LABS: Alanine Aminotransferase 590 U/L (0-33); Albumin Level 3.8 g/dL (3.5-5.2); Alkaline Phosphatase 128 U/L (35-105); Anion Gap 11.9 (5-19); Aspartate Amino Transferase 302 U/L (0-32); Blood Urea Nitrogen 5 mg/dL (6-20); Calcium 8.8 mg/dL (8.5-10.5); Carbon Dioxide 28 mmol/L (22-29); Chloride 105 mmol/L (98-107); Globulin 2.9 g/dL (1.3-4.6); Glomerular Filtration Rate 122.8 mL/min (90-130); Glucose 94 mg/dL (65-115); Osmolality Calculated 289 mOsm/kg (285-295); Potassium 3.9 mmol/L (3.5-5.1); Sodium 141 mmol/L (136-145); Total Bilirubin 1.2 mg/dL (0.15-1.2); Total Protein 6.7 g/dL (6.6-8.7)
[2023-10-08 07:57] VITALS: BP 141/92; PULSE 84; RESP 16; TEMP 36.9; O2SAT 96
--- NOTE | 2023-10-08 08:00 | NM_ITS ---
WS: [id number] NUCLEAR MEDICINE HIDA SCAN CLINICAL INFORMATION: elevated bilirubin s/p cholecystectomy TECHNIQUE: Following intravenous administration of 6.9 mCi of technetium 99m mebrofenin, images of th e abdomen were obtained over the course of 60 minutes. COMPARISON: Ultrasound 10/06/2023 FINDINGS: Normal hepatic uptake at 5 minutes. Normal hepatic excretion. Normal small bowel and common bile duct activity. Common bile duct activity visualized by 20 minutes. Prior cholecystectomy. No evidence of bile leak. Imaging is carried through 60 minutes. IMPRESSION: 1. No evidence of bile leak post cholecystectomy. 2. Normal common bile duct and small bowel activity is visualized. 3. No other suspicious findings.
[2023-10-08] MEDS: ondansetron 2 mg/ML SDV 2 mL 4 MG IVP (10:39)
[2023-10-08 11:34] VITALS: BP 116/77; PULSE 69; RESP 18; TEMP 36.6; O2SAT 95
--- NOTE | 2023-10-08 12:54 | P.DS_ITS ---
Discharge Providers Date of Admission: 10/06/23 11:04 Date of Discharge: October 08, 2023 Attending Provider at Admission: Doc Humphrey DO Attending Provider at Discharge: Doc Humphrey DO Primary Care Provider: Pedro Luis Arzola MD Diagnoses at Discharge Discharge Diagnosis (1) Status post laparoscopic cholecystectomy: Status: Acute (2) Hyperbilirubinemia: Status: Acute Reason for Visit Reason for Visit: ABD Pain Hospital Course Hospital Course This a very pleasant 23-year-old female who presented to the hospital with right upper quadrant abdominal pain. She was diagnosed with acute calculus cholecystitis. She underwent an uneventful laparoscopic cholecystectomy. On postoperative day #1 she was found to have hyperbilirubinemia. A HIDA scan was ordered for the next day. By the next morning however her bilirubin had normalized and HIDA scan was within normal limits. She is discharged home in good condition Physical Exam Narrative: General : Patient is well developed , no acute distress, oriented x3 Head : Normal cephalic, a-traumatic. Ears : Pinnae and external canal are normal. Hearing is normal. Eyes : PERRLA, Sclera and injection are normal. No conjunctival discharge. Nose : Mucous membranes are without erythema. Throat : buccal mucosa is normal, gums are without significant recession or hypertrophy. Lungs : Equal chest rise bilaterally, no use of accessory muscles, trachea is midline. Cor : Rate and rhythm are normal. Abdomen : Soft, ND, appropriately tender no g/r/m Extremities : No edema, no cyanosis or clubbing, dorsalis pedis pulses are present bilaterally, non-tender to palpation of calves. Upper extremities are normal bilaterally. Back : non-tender to palpation, no CVA tenderness. Neuro : CN II - XII intact, Upper and lower extremities have equal and full strength Discharge Data Studies Completed and Pending Completed Studies During Hospitalization Category Date Time Status NM hepatobiliary [place] phar [id number] Routine Nuc Med 10/08/23 08:00 Completed US gall bladder [id number] Stat Ultrasound 10/06/23 02:46 Completed Pending at discharge Category Date Time Status CBC Auto Diff [Complete Blood Count w/Auto] AM LABS Lab 10/09/23 04:00 Ordered CBC Auto Diff [Complete Blood Count w/Auto] AM LABS Lab 10/10/23 04:00 Ordered CMP [Comprehensive Metabolic Panel] AM LABS Lab 10/09/23 04:00 Ordered CMP [Comprehensive Metabolic Panel] AM LABS Lab 10/10/23 04:00 Ordered Urinalysis Stat Lab 10/06/23 07:20 Ordered Pathology: Surgical [PTH] Routine Pth 10/06/23 12:37 Received Radiology Impressions Gallbladder Ultrasound 10/06/23 02:46 IMPRESSION: Cholelithiasis; no obvious acute abnormality. Laboratory Results WBC 7.25 10^3/uL (3.29-11.43) 10/08/23 05:28 RBC 3.85 10^6/uL (3.85-5.65) 10/08/23 05:28 Hgb 10.90 g/dL (11.27-16.99) L 10/08/23 05:28 Hct 33.8 % (36-47) L 10/08/23 05:28 MCV 87.8 fl (85-98) 10/08/23 05:28 MCH 28.3 pg (27-33) 10/08/23 05:28 MCHC 32.2 g/dL (30-55) 10/08/23 05:28 RDW 13.9 % (12.1-15.1) 10/08/23 05:28 Plt Count 266 10^3/cmm (157-399) 10/08/23 05:28 MPV 10.3 fL (7.4-10.4) 10/08/23 05:28 Neut % (Auto) 49.1 % 10/08/23 05:28 Lymph % (Auto) 39.7 % 10/08/23 05:28 [place] % (Auto) 8.1 % 10/08/23 05:28 Eos % (Auto) 1.5 % 10/08/23 05:28 Baso % (Auto) 0.4 % 10/08/23 05:28 Neut # (Auto) 3.55 10^3/uL (1.8-7.7) 10/08/23 05:28 Lymph # (Auto) 2.9 10^3/uL (0.8-4.8) 10/08/23 05:28 [place] # (Auto) 0.6 10^3/uL (0.2-0.9) 10/08/23 05:28 Eos # (Auto) 0.1 10^3/uL (0.0-0.8) 10/08/23 05:28 Baso # (Auto) 0.0 10^3/uL (0.0-0.1) 10/08/23 05:28 Nucleated RBC % (auto) 0 % 10/08/23 05:28 Nucleated RBCs # 0.0 /100WBC 10/08/23 05:28 Sodium 141 mmol/L (136-145) 10/08/23 05:28 Potassium 3.9 mmol/L (3.5-5.1) 10/08/23 05:28 Chloride 105 mmol/L (98-107) 10/08/23 05:28 Carbon Dioxide 28 mmol/L (22-29) 10/08/23 05:28 Anion Gap 11.9 (5-19) 10/08/23 05:28 BUN 5 mg/dL (6-20) L 10/08/23 05:28 Creatinine 0.6 mg/dL (0.5-0.9) 10/08/23 05:28 GFR Calculation 122.8 mL/min (90-130) 10/08/23 05:28 Glucose 94 mg/dL (65-115) 10/08/23 05:28 Calculated Osmolality 289 mOsm/kg (285-295) 10/08/23 05:28 Calcium 8.8 mg/dL (8.5-10.5) 10/08/23 05:28 Total Bilirubin 1.2 mg/dL (0.15-1.2) 10/08/23 05:28 AST 302 U/L (0-32) H 10/08/23 05:28 ALT 590 U/L (0-33) H 10/08/23 05:28 Alkaline Phosphatase 128 U/L (35-105) H 10/08/23 05:28 C-Reactive Protein 5.0 mg/L (0.0-4.9) H 10/06/23 02:02 Total Protein 6.7 g/dL (6.6-8.7) 10/08/23 05:28 Albumin 3.8 g/dL (3.5-5.2) 10/08/23 05:28 Globulin 2.9 g/dL (1.3-4.6) 10/08/23 05:28 Lipase 65 U/L (13-60) H 10/06/23 02:02 HCG, Qual Negative (Negative) 10/06/23 02:02 Procedures Performed Laparoscopic cholecystectomy Vitals Last Vital Signs Temp 97.9 F 10/08/23 11:34 Pulse 69 10/08/23 11:34 Resp 18 10/08/23 11:34 BP 116/77 10/08/23 11:34 Pulse Ox 95 10/08/23 11:34 O2 Del Method Room Air 10/08/23 11:34 O2 Flow Rate 8 10/06/23 13:09 Discharge Plan Discharge Patient Disposition: Home Condition: Stable Prescriptions: New hydrocodone-acetaminophen 7.5-325 mg tablet 1 tab PO Q6H PRN (Reason: pain) Qty: 20 0RF DOK 100 mg capsule 100 mg PO BID Qty: 14 0RF Continued rifampin 300 mg capsule 600 mg PO DAILY PRN (Reason: unknown) fluoxetine 20 mg capsule 20 mg PO DAILY PRN (Reason: unknown) ondansetron 4 mg tablet,disintegrating 4 mg PO Q6H PRN (Reason: nausea and vomiting) Qty: 14 0RF Held hydrocodone-acetaminophen 5-325 mg tablet 1 tab PO Q8H PRN (Reason: pain) Qty: 7 0RF Hold Instructions: Resume on 10/11/23. Discharge Orders: Discharge Order (Routine); Ordered 10/08/23 Ordered By: Doc Humphrey Referrals: Doc Humphrey DO [Physician] - 10/21/23 8:15 am Pedro Luis Arzola MD [Primary Care Provider] - 10/13/23 3:30 pm Discharge Diet: Advance as tolerated Discharge Activity: Resume usual activity Patient Instructions: Hydrocodone/Acetaminophen (By mouth), Cholecystitis (DC), Laparoscopic Cholecystectomy (DC), Opioid Safety, Post Anesthesia Care Activity Restrictions/Additional Instructions: Do not soak incisions underwater for 2 weeks. Shower daily. Discharge Attestations Time Spent in Discharge Care*: less than 30 min Quality Metrics Clinical Quality Measures [ No reported AMI, CVA or VTE this stay] Coding Level of Care Code Acute Code for Chg Fwd Diagnoses Status post laparoscopic cholecystectomy Z90.49 Hyperbilirubinemia E80.6
[2023-10-08 13:54] VITALS: BP 116/77; PULSE 69; RESP 18; TEMP 36.6; O2SAT 95
== END 2023-10-08 13:55 | disposition home or self-care (01) ==
LOC: ER 06:41 → MEDSURG 07:09
PROVIDERS: Admitting Provider Surgery; Emergency Provider Emergency Medicine; PCP Family Medicine; Visit Provider Surgery
PROC: 0FT44ZZ Resection of Gallbladder, Percutaneous Endoscopic Approach (ICD-10-PCS; CPT 47562; principal; 2023-10-06 11:25)
DX: K80.10 Calculus of gallbladder with chronic cholecystitis without obstruction (principal); E80.6 Other disorders of bilirubin metabolism; E66.01 Morbid (severe) obesity due to excess calories; Z68.36 Body mass index [BMI] 36.0-36.9, adult
CPT/HCPCS: 47562; 36415; 76705; 78226; 80053; 83690; 84703; 85025; 86140; 88304; 96374; 96375; 96376; 99285; A9537; G0378; J1100; J1885; J2250; J2270; J2405; J2543; J2704; J2710; J3010; J3490; J7030; J7120

== ENCOUNTER → 2023-10-14 11:27 | Outpatient (BNVA) | payer MEDICAID, SELFPAY | PROVIDERS: PCP Family Medicine; Visit Provider Student in an Organized Health Care Education/Training Program | DX: Z22.7 Latent tuberculosis (principal); R74.01 Elevation of levels of liver transaminase levels | CPT/HCPCS: 71045 ==

== ENCOUNTER → 2024-01-06 12:20 | Outpatient (BNVA) | payer MEDICAID, SELFPAY | PROVIDERS: PCP Family Medicine; Visit Provider Student in an Organized Health Care Education/Training Program | DX: Z22.7 Latent tuberculosis (principal); R74.01 Elevation of levels of liver transaminase levels | CPT/HCPCS: 36415; 80053; 81025; 86705; 86706; 86709; 86803; 87340 ==

== ENCOUNTER → 2024-03-04 10:12 | Outpatient (BNVA) | payer MEDICAID, SELFPAY | PROVIDERS: PCP Family Medicine; Visit Provider Nurse Practitioner Family | DX: J02.9 Acute pharyngitis, unspecified (principal) | CPT/HCPCS: 87880 ==

== ENCOUNTER → 2024-07-20 17:21 | Outpatient (BNVA) | payer MEDICAID, SELFPAY | PROVIDERS: PCP Family Medicine; Visit Provider Family Medicine | DX: Z51.81 Encounter for therapeutic drug level monitoring (principal); Z13.220 Encounter for screening for lipoid disorders; Z01.419 Encounter for gynecological examination (general) (routine) without abnormal findings; R87.610 Atypical squamous cells of undetermined significance on cytologic smear of cervix (ASC-US) | CPT/HCPCS: 87491; 87591; 87624 ==

== ENCOUNTER → 2024-07-21 10:35 | Outpatient (BNVA) | payer MEDICAID, SELFPAY | PROVIDERS: PCP Family Medicine; Visit Provider Family Medicine | DX: Z51.81 Encounter for therapeutic drug level monitoring (principal); Z13.220 Encounter for screening for lipoid disorders; Z01.419 Encounter for gynecological examination (general) (routine) without abnormal findings | CPT/HCPCS: 80053; 80061; 85025 ==